=== PATIENT | male | born 1950 | race Caucasian/White ===

== ENCOUNTER → 2017-12-11 13:27 | Outpatient (REF) | payer OTHER, SELFPAY | LOC: LAB 13:27 | PROVIDERS: Visit Provider Otolaryngology | DX: J32.9 Chronic sinusitis, unspecified (principal) | CPT/HCPCS: 87070; 87075; 87077; 87186; 87205 ==

== ENCOUNTER → 2018-01-28 13:40 | Outpatient (REF) | payer OTHER, SELFPAY | LOC: LAB 13:40 | PROVIDERS: Visit Provider Otolaryngology | DX: J32.9 Chronic sinusitis, unspecified (principal) | CPT/HCPCS: 87070; 87075; 87077; 87205 ==

== ENCOUNTER → 2020-02-26 15:20 | Outpatient (CLI) | payer OTHER, SELFPAY ==
[2020-02-27 16:58] LABS: COVID19 Sendout Not Detected (Not Detect)
== END ==
PROVIDERS: PCP Family Medicine; Visit Provider Physician Assistant
DX: Z11.59 Encounter for screening for other viral diseases (principal); Z11.9 Encounter for screening for infectious and parasitic diseases, unspecified
CPT/HCPCS: 87635

== ENCOUNTER 2020-02-29 09:09 | Inpatient (IN) | payer OTHER, SELFPAY ==
[2020-02-23 13:55] VITALS: BMI 33.0
[2020-02-29] VITALS (38 sets, daily range): BP systolic 75–143; BP diastolic 27–94; PULSE 78–101; RESP 6–18; TEMP 35.9–37; O2SAT 87–97; BMI 33.7
--- NOTE | 2020-02-29 | DI.RAD.S_ITS ---
PROCEDURE: XR LUMBAR SPINE 2-3V INDICATIONS: OR TECHNIQUE: 2 views of the lumbar spine were acquired. COMPARISON: [facility], CR, XR LUMBAR SPINE FLEXION EXTENSION, 09/29/2019, 15:28. FINDINGS: 2 submitted fluoroscopic intraoperative images demonstrate posterior/interbody fusion at the L4-L5 and L5-S1 level with posterior fixation hardware and disc spacers in expected position. IMPRESSION: Posterior/interbody fusion L4-L5 and L5-S1. Dictated by: Arnold PEDRAZA Interpreted: Sarahi Guerrero MD on 02/29/2020 at 16:48 Approved by: Sarahi Guerrero M.D. on 02/29/2020 at 18:04
--- NOTE | 2020-02-29 09:38 | PM.PREOP ---
Pre-operative Note COVID-19 COVID-19 status: Negative Result date/Date tested (Pos, Neg/Pending): 02/26/20 Interval Note History & Physical reviewed/Exam performed by Physician: Yes Changes to H&P: No
[2020-02-29] MEDS: LACTATED RINGERS 1,000 ML 42 ML IV ×3 (09:59→11:49)
[2020-02-29] MEDS: CEFAZOLIN 2 GM/100 ML FROZ.PIGGY IV ×3 (10:18→22:05)
--- NOTE | 2020-02-29 10:55 | SUR.OPER ---
Prone on spine table, head in foam head support, padded chest and pelvic supports, gel pad at knees, lower legs supported by pillows; nipples, genitalia and toes free of pressure, arms secured on foam padded arm boards at <90 degrees abduction. Tape over blanket at thigh secured to table.
[2020-02-29] MEDS: THROMBIN (RECOMBINANT) 5,000 UNIT VIAL 5000 UNIT TOP (10:59)
[2020-02-29] MEDS: VANCOMYCIN 1,000 MG VIAL 1000 MG TOP (11:00)
[2020-02-29] MEDS: BUPIVACAINE 0.5% (PF) 4 ML, MORPHINE-PF 4 MG, BUTORPHANOL 1 MG, fentaNYL 100 MCG INJ (11:00)
[2020-02-29] MEDS: SODIUM CHLORIDE 0.9% 1,000 ML, GENTAMICIN 80 MG IRR (11:01)
--- NOTE | 2020-02-29 15:08 | P.OP_ITS ---
Operative Date/Time/Diagnoses Date of procedure: 02/29/20 Time of procedure: 15:08 Pre-op diagnosis: Lumbar stenosis with radiculopathy Lumbar spondylolisthesis Post-op diagnosis: same Procedure & Clinicians Procedure: L2-3, L3-4, L4-5, L5-S1 laminectomies L4-5 L5-S1 TLIF (posterior/posterior interbody fusion) with cages L4, L5, S1 screws Iliac crest bone graft aspirate Use of microscope Placement of epidural catheter Same procedure as scheduled: Yes Indications: [age] year old male with intractable pain from stenosis. They had failed conservative management and requested operative intervention. Risks and benefits of surgery were discussed and appropriate consents were obtained. Surgeon: Austin Garcia Education Instructor: Elvia Jarrell Anesthesia Type: General Operative Notes Findings: None Closure Type: primary Specimen(s): none sent Prosthetic devices, grafts, tissues, transplants, or devices: NuVasive MAS Reline screws Globus Sable cage Applied: catheter Estimated Blood Loss (mL): 50 Blood products transfused: none Procedure in detail: The patient was brought to the operating room and intubated on the table. A time-out was performed. They were then rolled over to the well- padded Adam table in the prone position. Preoperative antibiotics were given. The back was prepped and draped in the standard sterile fashion. Using fluoroscopy, a 6 cm longitudinal incision was made to the right of the midline. We used Bovie to come down to and split the lumbodorsal fascia. Using fluoroscopy and monitoring, we then percutaneously placed Jamshidi needles down the pedicles of L4, L5, and S1 on the right side. These were changed out to guidewires and then we tapped and then placed the NuVasive MAS Reline screw shanks. We then opened up the retractors and used Bovie to clear up the posterolateral gutter as well as medially along the lamina to the spinous processes. A bur was used to decorticate the transverse process of L5 and the sacral ala. We brought in the microscope. Using a combination of bur and Kerrison rongeurs, a laminectomy was performed from the right side. We cleared over past the midline and carefully depressed the dura until we were able to decompress the opposite side. We had to do a facetectomy to open up the neural foramen. We could then used the ball probe to make sure the central canal and foramen were opened. We then began the TLIF prep. We carefully cleaned up the remainder of the foramen until we could easily retract the exiting root as well as clearing medially below the dura and expose the disc space. The disc was prepped with bipolar and then an annulotomy was performed. We performed a diskectomy using a combination of paddles, lisa, pituitaries, and curettes. We distracted the disc using a paddle and locked the retractor in an open position. We then filled the disc space with Osteocel bone graft. We then placed the globus stable cage under fluoroscopy and then filled this in with more bone graft. The distraction on the retractor was released to compress down. This completed the posterior interbody fusion portion of the TLIF at L5-S1. We then moved our retractors up to L4-5. We cleared out the gutter and decorticated the L4 transverse process. We cleared medially. We performed a laminectomy at L4-5. He was extremely tight in the central canal and this level took the longest time compared all the other ones to adequately decompress. In the end we could sweep the ball probe cephalad caudally and out the foramen everything was open. This was separate and distinct from a TLIF approach due to the need to completely decompress the canal and the extended time, which was separate than just a basic approach for TLIF. We then retracted the dura medially. A scalpel used to perform an annulotomy. We performed a complete diskectomy with pituitaries, paddles, Lisa, and curettes. We then placed bone graft and then another globus stable cage and distracted open and then packed and more bone graft. This completed the posterior interbody portion of the TLIF at L4-5. We then moved our retractor up another level and did a laminectomy at L3-4. We then went up to the L2-3 level and also did laminectomy until everything was decompressed. The wound was copiously irrigated. An epidural catheter was then prepped with 4 mL of 0.5% Marcaine, 1 mg Stadol, 4 mg Duramorph, and 100 mcg of fentanyl and placed in the spinal canal by carefully depressing the dura and advancing it 6 cm cephalad under the remaining lamina without resistance. We then placed the screw heads, vinicio, and locked down the set screws. A small stab incision was made over the PSIS. We used a Jamshidi needle to aspirate several mL of bone marrow from the pelvis. This was mixed with the remaining Osteocel and combined with all of the locally harvested bone graft and placed in the posterolateral gutter for the posterior fusion of the TLIF at L4-5 and L5-S1. The muscle fascia was closed. The epidural catheter was then injected without resistance and the catheter was pulled. We then went to the opposite side. Again using fluoroscopy, a 3 cm incision was made and Bovie was used to come down to split the fascia. Using neural monitoring and fluoroscopy, Jamshidi needles were advanced down the pedicles of L4, L5, and S1 on the left side. These were switched over guidewires, tapped, and screws placed. We then placed a vinicio and locked the set screws on this side. The wound was irrigated. The fascia was closed. Vancomycin powder was placed in the wounds. The superficial and skin were closed. A sterile dressing was placed. The patient was then rolled over extubated and brought to recovery room without complications. Complications: none Post-operative Condition: stable Disposition: PACU Plan for aftercare: Inpatient. Up with PT.
--- NOTE | 2020-02-29 16:38 | SUR.PHASEI ---
PT ON CPAP WITH 12 L OXYGEN, RR 6-11, DIMINSIHED BS IN BILATERAL UPPER LOBES, UNABLE TO AUSCULTATE BREATH SOUND IN BILATERAL LOWER LOBES, O2 SATS BETWEEN 86-93%, WILL GET CHEST XRAY. PT AROUSABLE AND FOLLOWS COMMANDS, [place]. DR REED AND DR CROCKER ARE AWARE.
--- NOTE | 2020-02-29 16:46 | DI.RAD.S_ITS ---
PROCEDURE: XR CHEST 1V INDICATIONS: LOW O2 SATS AND LIMITED BREATH SOUNDS AFTER SURGERY TECHNIQUE: One view of the chest was acquired. COMPARISON: [facility], CR, XR CHEST 1 VIEW, 03/19/2019, 8:27. FINDINGS: Surgical changes and devices: None. Lungs and pleura: Patchy opacity in the left lung base which could represent atelectasis, aspiration or pneumonia. No pleural effusions or pneumothorax. Mediastinum: Mediastinal contours appear normal. Heart size is normal. Bones and chest wall: No suspicious bony lesions. Overlying soft tissues appear unremarkable. IMPRESSION: 1. No pneumothorax. 2. Patchy opacity in left lung base compatible atelectasis, aspiration or pneumonia. Dictated by: Tanja Griffin MD, PhD on 02/29/2020 at 17:08 Approved by: Tanja Griffin MD, PhD on 02/29/2020 at 17:10
--- NOTE | 2020-02-29 16:52 | SUR.PHASEI ---
REPORT TO RELIEF ANNETTA FRAGA
--- NOTE | 2020-02-29 16:55 | SUR.PHASEI ---
Assumed care of pt. He is sleeping, oral airway in, CPAP on at 12L. Skin warm and dry; Iain Garcia RN calling report to ICU. Pt recently denied pain and was easily aroused. Urine yellow with white sediment.
--- NOTE | 2020-02-29 18:11 | SUR.PHASEI ---
Dr Garcia here, informed him of BP, CPAP/(he will have RT follow the patient)/CXR, diminished breath sounds in the bases, R>L, urine output and white sediment in urine. He looked at the urine, stated that back dressing may be changed after informing him of the dressing status.
--- NOTE | 2020-02-29 18:14 | SUR.PHASEI ---
Pt sleeping but continues to arouse easily. Skin warm and dry, continues to use CPAP with 14L O2
--- NOTE | 2020-02-29 18:18 | SUR.PHASEI ---
Discussed transfer with Dr. Luis; OK to transfer patient to ICU
--- NOTE | 2020-02-29 18:23 | SUR.PHASEI ---
Report updated with Marisol (ICU)RN. Pt continues to respond readily, denies pain.
--- NOTE | 2020-02-29 18:56 | SUR.PHASEI ---
1830 Transported to room 230 ICU with RN coordinator on 14L simple mask and continuous monitoring. Transport VS 118/80 101, 10, 96%. Pt turned in the room for receiving RN to check his dressing; she will change it with her staff and declined my need to assist. CPAP and clothing bag to the room with him. Pt oriented, appropriate, moves easily with assist. Continues to deny pain/nausea. Family at bedside. Stable. Tolerated transport well. Sat improved on simple mask over CPAP at the time of transfer.
[2020-02-29] MEDS: LACTATED RINGERS 1,000 ML 125 ML IV (19:46)
--- NOTE | 2020-02-29 20:51 | PC.NURSE ---
Addendum entered by Lynette Larry R.N. 02/29/20 22:26: 2226 RT Marianne at bedside to place pt on hospital BiPAP, turned up O2 to 10L bleed in on his home CPAP and saturations continued to drop to 87% when pt sleeping. BiPap setting 10/5 60% rate of 15, Will continue to monitor closely for O2 needs. Addendum entered by Lynette Larry R.N. 02/29/20 21:37: 2055 RT Marianne at bedside, set up pt home CPAP machine with 5L bleed in. Marianne states that if pt needs more than 10L bleed in O2 we will need to switch pt to the hospital BiPAP instead of his home CPAP. 2100 Pt desaturating on 5 L bleed in, turned pt up to 7L bleed in, saturation 92%, will continue to monitor closely for more O2 needs. Original Note: 1838 Pt arrived to room with ONCOLOGY RADIATION PHYSICIAN and Charge Nurse assistance, pt sleeping but rouses to voice and promptly falls back to sleep. Connected pt to monitoring, VSS. Arrived on simple mask with 14L saturation at 92%, contacted RT for BPAP set up. Assessed the dressing to midline on back, needs to be changed, replaced xeroform, gauze and tegaderm. Left sided incision continues to drain serosanguinous drainage, covered with new dressing, now CDI. is at bedside, she answered most admission assessment questions, pt able to answer some questions but quickly falls back to sleep. Oriented pt to room and call light system, pt denies pain at this time, bed low and locked, call light within reach, will continue to monitor.
[2020-03-01] VITALS (20 sets, daily range): BP systolic 94–126; BP diastolic 50–73; PULSE 77–110; RESP 11–27; TEMP 35.8–37.3; O2SAT 90–98
--- NOTE | 2020-03-01 00:28 | PC.NURSE ---
Pt alert and oriented x4. Denies any pain at this time. O2 sats running at 96% while on Bipap. VSS. Pt back dressing saturated with sanguineous drainage. Dressing changed. Pt log rolling from side to side without much assist. Gomes cather draining cloudy yellow urine. CMS intact. Pt denies any complaints at this time
[2020-03-01] MEDS: HYDROMORPHONE 0.5 MG INJ IV (02:41)
[2020-03-01] MEDS: LACTATED RINGERS 1,000 ML 125 ML IV (04:23)
[2020-03-01 05:31] LABS: Hemoglobin 11.7 g/dL (13.5-17.5)
[2020-03-01] MEDS: OXYCODONE/ACETAMINOPHEN 5/325 TABLET 2 TAB PO ×4 (05:54→19:41)
[2020-03-01] MEDS: CEFAZOLIN 2 GM/100 ML FROZ.PIGGY IV (05:56)
--- NOTE | 2020-03-01 06:11 | DI.RAD.S_ITS ---
PROCEDURE: XR CHEST 1V INDICATIONS: decreased O2 saturation TECHNIQUE: One view of the chest was acquired. COMPARISON: [facility], CR, XR CHEST 1V, 02/29/2020, 16:37. FINDINGS: Surgical changes and devices: None. Lungs and pleura: Patchy opacity left lung base are stable. No pleural effusions or pneumothorax. Mediastinum: Mediastinal contours appear normal. Heart size is normal. Bones and chest wall: No suspicious bony lesions. Overlying soft tissues appear unremarkable. IMPRESSION: Stable examination compared February 29, 2020. Patchy opacity left lung base could represent atelectasis, aspiration or pneumonia. Dictated by: Tanja Griffin MD, PhD on 03/01/2020 at 9:11 Approved by: Tanja Griffin MD, PhD on 03/01/2020 at 9:13
--- NOTE | 2020-03-01 08:20 | P.PN_ITS ---
Subjective Subjective Date Patient Seen: 03/01/20 Time Patient Seen: 08:20 Interval history: He is doing well. Gradually started waking up overnight and has weaned off his CPAP and BiPAP to just 3 L O2. Pain is about a 6 and controlled with Percocet. Mostly stiff in the back. Legs feel good Exam Vital Signs (past 8 hours): - 03/01/20 01:00 03/01/20 01:13 03/01/20 02:00 Temperature Pulse Rate 96 H 96 H 95 H Respiratory Rate 13 12 11 L Blood Pressure 125/64 125/64 125/67 Pulse Oximetry 95 97 97 03/01/20 03:00 03/01/20 04:00 03/01/20 04:27 Temperature 98.0 F Pulse Rate 96 H 95 H Respiratory Rate 11 L 14 Blood Pressure 112/63 116/63 Pulse Oximetry 96 98 03/01/20 05:00 03/01/20 06:00 Temperature Pulse Rate 94 H 101 H Respiratory Rate 14 Blood Pressure 119/65 120/63 Pulse Oximetry 92 94 Fraction of Inspired Oxygen 60 Oxygen Delivery Method BiPAP Oxygen Flow Rate 3 Const Orientation: alert and oriented x3 Back/Spine/Pelvis Other: Moderate drainage. 5/5 motor both lower extremities Objective Labs Result Diagrams: 03/01/20 04:33 Labs: Laboratory Results - last 24 hr 02/29/20 03/01/20 18:56 04:33 Hgb 11.7 L Hct 35.0 L Nasal Screen MRSA (PCR) Negative for mrsa Assessment & Plan Post-op Postoperative Procedures: Procedures Operation Date: 02/29/20 10:15 Actual Procedures Side Surgeon p L2-S1 laminectomies,L4-S1 instrumented fusion w/bone graft Austin Garcia MD he is doing much better today. Mobilize with physical therapy. Anticipate 2 m ore days in the hospital.
[2020-03-01] MEDS: CELECOXIB 200 MG CAPSULE PO ×2 (09:59→20:22)
[2020-03-01] MEDS: GABAPENTIN 600 MG TABLET PO ×3 (09:59→20:23)
[2020-03-01] MEDS: CHOLECALCIFEROL (VITAMIN D3) 5,000 UNIT TABLET 5000 UNIT PO (10:06)
[2020-03-01] MEDS: LORATADINE 10 MG TABLET PO (10:07)
[2020-03-01] MEDS: DOCUSATE 100 MG CAPSULE PO ×2 (10:07→20:23)
[2020-03-01] MEDS: CYANOCOBALAMIN (VITAMIN B-12) 500 MCG TABLET 2000 MCG PO (10:07)
[2020-03-01] MEDS: DULOXETINE 30 MG CAPSULE 90 MG PO (10:07)
[2020-03-01] MEDS: MULTIVITAMIN 1 TABLET 1 TAB PO (10:08)
[2020-03-01] MEDS: FLUTICASONE 120 SPRAY/16 GM SPRAY.SUSP NASAL (10:08)
[2020-03-01] MEDS: PANTOPRAZOLE 40 MG TABLET PO (10:08)
[2020-03-01] MEDS: lisinopriL 20 MG TABLET PO (10:08)
[2020-03-01] MEDS: AMLODIPINE 5 MG TABLET 10 MG PO (10:09)
[2020-03-01] MEDS: ASCORBIC ACID 500 MG TABLET 1000 MG PO ×2 (10:10→20:22)
--- NOTE | 2020-03-01 11:32 | PT.IIE ---
Current Diagnoses Other forms of scoliosis, lumbar region (02/29/20) Spondylolisthesis, lumbar region (02/29/20) Spinal stenosis, lumbar region with neurogenic claudication (02/29/20) Surgery Performed Operation Date: 02/29/20 10:15 Actual Procedures p L2-S1 laminectomies,L4-S1 instrumented fusion w/bone graft - Austin Garcia MD Surgical History (Last Updated 02/23/20 @ 14:30 by Ella Whitehead RN) H/O umbilical hernia repair (Acute 2019) History of bilateral carpal tunnel release (Acute) History of colonoscopy (Acute) History of esophageal hernia repair (Acute 2018) History of lumbar surgery (Acute 2008) Hx of appendectomy (Acute) Hx of sinus surgery (Acute 2017) Hx of tonsillectomy (Acute) Medical History (Last Updated 02/23/20 @ 14:30 by Ella Whitehead RN) Arthritis (Acute) Depression (Acute) GERD (gastroesophageal reflux disease) (Acute) Hemorrhoids (Acute) History of exposure to tuberculosis (Acute) HLD (hyperlipidemia) (Acute) HTN (hypertension) (Acute) TJ (obstructive sleep apnea) (Acute) Peripheral neuropathy (Acute) RLS (restless legs syndrome) (Acute) Skin cancer (Acute) Physical Therapy Inpatient Evaluation/Re-Eval M1 PT/OT-IP Prior Functional Status Start: 03/01/20 08:42 Freq: NEEDED Status: Active Protocol: Document 03/01/20 11:13 (Rec: 03/01/20 11:32 [email or web address]) Medical Review Prior Functional Status Medical History Reviewed Yes Diet/Fluid Consistency Regular Communication no deficits noted. Mobility and Gait independent for all mobility at home and community. Walking over 1/2 mile or driving over 30 mins tend to aggravate his back pain. Bending over tends to relieve his symptoms. Activities of Daily Living and IADL's independent for all ADLs and IADLs witohut AD. He is also able to drive. Social History Household Members spouse Living Arrangements House Number of Floors (Floors) One Floor Number of Stairs To Enter/Railing? 3 MEENA without rails. 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 He stated his will be able to assist as needed, and so does his sister who lives 15 mins away. M2 PT-IP Current Condition Start: 03/01/20 08:42 Freq: NEEDED Status: Active Protocol: Document 03/01/20 11:13 (Rec: 03/01/20 11:32 [email or web address]) Physical Therapy Current Condition Current Condition Evaluation Date 03/01/20 Treatment Diagnosis L2-S1 laminectomies,L4-S1 instrumented fusion Onset Date 02/29/20 Precautions Lumbar Precautions Log Roll,No Twisting,Limit Bending,Lifting Restriction of 10 lbs,Gait Belt above Incisional Area Weight Bearing Status Weight Bearing Status Weight Bear as Tolerated M3 PT-IP Subjective Start: 03/01/20 08:42 Freq: NEEDED Status: Active Protocol: Document 03/01/20 11:13 (Rec: 03/01/20 11:32 [email or web address]) Subjective Physical Therapy Visit Type Type Initial Evaluation Visit Start Time 10:00 Visit Stop Time 10:39 Total Visit Minutes 39 Notes Per EMR, pt is gradually started waking up overnight and has weaned off his CPAP and BiPAP to just 3 L O2. Pain is about a 6 and controlled with Percocet. Number of RECORDS MANAGEMENT ASSOCIATE Visits 0 Physical Therapy Visit Comments Patient Comments Im feeling much better today. Patient Goals to return home with . Therapy Pain Assessment Pain When Pain Assessed During Mobility Pain Present Pain Present Pain Reported Location both legs Description Tightness Pain Management Techniques Timing of Activity with Medications back Description Aching,Tightness Pain Management Techniques Timing of Activity with Medications M4 PT-IP Mobility and Gait Start: 03/01/20 08:42 Freq: NEEDED Status: Active Protocol: Document 03/01/20 11:13 (Rec: 03/01/20 11:32 [email or web address]) PT-Bed Mobility Assessment Rolling Type of Rolling Log Rolling,Roll to Right Level of Assist Standby Assistance Supine to Sit Supine to Sit Standby Assistance,Bedrails Scooting Scooting to Edge of Bed Standby Assistance PT-Transfer Assessment Sit to and From Stand Sit to and from Stand Contact Guard Assistance,Use of Upper Extremities Equipment Transfer Assistive Device Gait Belt,Front Wheeled Walker Orthotic/Prosthetic Devices or Brace: No Transfers Transfer Destination Bed,Chair Transfer Technique Stand Step Pivot Transfer Ability Level of Assist Contact Guard Assistance,Use of Upper Extremities Comments Mobility Comments Pt was in bed with elevated HOB upon PT arrival. Stated pain is controlled and appeared to AxO x 4. BP at 128 /80, SpO2 99% with NC. RN Shana came in to deliver medication and approved to detach his NC and tele. Pt's SpO2 was able to maintain >92% without NC after. Reviewed postop precautions with pt. He then completed log roll by using R bed rail to pull followed by SL push off to sit up with SBA. Pt completed confidently without much discomfort. He then able to stand up with CGA and FWW. SpO2@ ~88-92%. Pt then proceed to amb in the room with therapist and he was well aware not to rotate his trunk during turns. Pt was able to stand without support while donning face mask after. He then amb 1 lap of [facility] with SBA. He appeared to be steady with proper gait mechanics but with a FHP and thoracic kyphosis. Pt then walked back to his room and safely transferred himself to chair with 1UE support on FWW and the other one on chair armrest. BP at 152/84 after SpO2 at 96%. Pt did show some SOB but denied increased in discomfort except tightness at calves. Call light placed within reach and provided the list of [employer] companies. Gait Assessment Gait Gait Assistance Required: Standby Assistance,Contact Guard Assist Distance (Feet) 140 Able to Maintain Weight Bearing Status Yes During Gait Assistive Devices Assistive Device Gait Belt,Front Wheeled Walker Orthotic/Prosthetic Devices or Brace: No Gait Deviations General Gait Pattern Decreased Stride Length, Decreased Feet Clearance, Flexed Trunk,Step-to Gait Factors Limiting Gait Function Factors Limiting Gait Function Decreased Activity Tolerance, Decreased Strength,Limited Range of Motion,Pain,Poor Balance,Respiratory Distress Comments Gait Comments see mobility comments. Stair Climbing Assessment Comments Stair Climbing Comments did not attempt d/t fatigue. PT-Balance Assessment Sitting Balance and Reactions Static Sitting Balance Ability Normal Dynamic Sitting Balance Ability Normal Standing Balance and Reactions Static Standing Balance Ability Good Dynamic Standing Balance Ability Good Device Used FWW M5 PT-IP Objective Assessments Start: 03/01/20 08:42 Freq: NEEDED Status: Active Protocol: Document 03/01/20 11:13 HH (Rec: 03/01/20 11:32 [email or web address]) Orientation Orientation/Cognition Level of Alertness Alert Orientation Name,Age,Birthday,Month,Date, Year,Day of Week,Place, Situation Language Function Ability No Deficits Noted Safety Awareness Understands Safety Issues Memory Description No Deficits Noted Gross Range of Motion Upper Extremity ROM Assessment Within Functional Limits Lower Extremity ROM Assessment Within Functional Limits Strength Upper Extremity Strength Assessment Within Functional Limits Lower Extremity Strength Assessment Bilaterally Impaired Hip 4-/5 Knee 4/5 Ankle 4/5 Coordination Assessment Gross Coordination Gross Coordination WNL Sensation Assessment Sensation Gross Sensation WNL Muscle Tone Muscle Tone WNL Yes M6 PT-IP Treatment Start: 03/01/20 08:42 Freq: NEEDED Status: Active Protocol: Document 03/01/20 11:13 (Rec: 03/01/20 11:32 [email or web address]) Physical Therapy Treatment Exercises Exercises Ankle Pumps,Gluteal Sets,Quad Sets,Heel Slides Education Education Provided Precautions,Weight Bearing Status,Post-Op Packet,Safety M7 PT-IP Assessment and Plan Start: 03/01/20 08:42 Freq: NEEDED Status: Active Protocol: Document 03/01/20 11:13 (Rec: 03/01/20 11:32 [email or web address]) PT Summary Assessment and Plan Potential Rehabilitation Potential Excellent Status of Condition at Evaluation Stable Summary Impairments Pain,ROM,Strength,Balance,Bed Mobility,Transfers,Gait, Activity Tolerance Assessment Summary This is a low complexity evaluation for this 69yo male s/p POD 1 L2-S1 laminectomies, L4-S1 instrumented fusion. Pt is totally independent without assistance/ AD prior to sx. Upon assessment, pt did very well who has excellent self awareness and understanding with post op precautions. He was able to complete log roll, gait training with FWW with SBA-CGA safely. No increased discomfort noted and both BP and SpO2 are well managed as well. Expect pt will be d/c home with assistance as needed once he is medically stable and completes rehab goals. Goals Bed Mobility Goal Standby Assistance Transfer Goal Standby Assistance,Front Wheeled Walker Gait Goal Standby Assistance,Front Wheel Walker Gait Distance 200 Other Goals 3 MEENA with rails SBA/CGA Days to Meet Goals 3 Frequency of Treatment Frequency Of Treatment Twice a Day Treatment Plan Physical Therapy Treatment Plan Bed Mobility Training,Transfer Training,Gait Training, Therapeutic Exercise,Balance Retraining,Post Op Education, Discharge Planning,Hot or Cold Pack,Neuromuscular Re-ed Other Recommendations and Next Treatment reivew post op precautions Focus check DME availability at home CG training might needed for 3 Meena climbing without rails. Recommendations To Nursing Amount of Assist Needed 1 Person Assist Discharge Recommendations PT Discharge Recommendations Home with Assistance Equipment Needed for Home Before raise toilet seat Discharge shower chair with backrest FWW if pt's family cannot acquire on their own Transportation Needs at Discharge Private Vehicle
--- NOTE | 2020-03-01 13:08 | CM.DANOTE ---
Patient is a 69 year old male who was admitted on 02/29/20 for Lumbar Surgery. Pt has [facility] for insurance and his PCP is Dr. Charlie Mobley. EMR was reviewed. Per Ortho MD, pt making progress as he was requiring bipap post surgery and weaned to 3L oxygen to room air. Pt having some pain and to work with PT/OT today. 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 OT pending. 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 Pt denies any hx of HH or SNF and DPOA is spouse Reanna. Pt preference is home with spouse assist and sister lives nearby and available for assist as well. Pt has list of DME companies and plans to call a few to get some DME like walker, shower bench, raised toilet seat etc. and will continue working with PT/OT for caregiver training and both currently feel comfortable with plan of home at d/c. Plan: SW to follow for further PT/OT to confirm plan of home with assist tomorrow or Friday pending further therapy recommendations and CG training. SOC[place]RO [place] Discharge Planning/Care Management CM Discharge Assessment Start: 03/01/20 12:59 Freq: Status: Active Protocol: Document 03/01/20 13:00 BF (Rec: 03/01/20 13:08 [id number]) Discharge Planning Assessment Assigned Fire Prevention Officer BRAXTON Prajapati DPOA/Assigned Designee Name spouse Reanna Contact Information [phone] Advance Directives? No History Provided By Patient,Significant Other, Medical Record Has Patient been admitted in last 30 No days? Prior Living Arrangements House Household Members spouse Type of transporation used prior to Drives own vehicle admit Comment Independent and active at baseline Independent with ADL's Yes Is patient alert and oriented? Yes Caregiver for Another No Community Services used prior to Physical Therapy admission: Comment Looking to get a walker, raised toilet, bath bench Patient/Family Preference OP PT Therapy Barriers to Discharge No Discharge Plan Home Community Services Physical Therapy,Occupational Therapy Transportation Arrangement Spouse bedside and can provide transport at d/c. Referrals Initiated None needed Whiteboard Updated in Patient Room with Yes name and ext. # of Fire Prevention Officer Review Status In Process Please Provide Date Initial DC 03/01/20 Assessment Was Performed Next Review Type Continued Stay Review Pre-Anesthesia Assessment Start: 02/23/20 13:55 Freq: Status: Complete Protocol: Document 02/23/20 13:55 CAB (Rec: 02/23/20 15:14 CAB [id number]) Pre-Anesthesia Assessment Preferred Name Javier or Alejandro Patient Information Reviewed Via Phone Assessment Assessment Completed With Patient Comment Labs/EKG done per pt, not available-COVID screen @ 02/26/20 Primary Care Provider Charlie Mobley Seen Specialist in Last 12 Months Yes Specialist Seen Growth Media Mixer Mushroom,General surgeon, Orthopedist Primary Language Chinese Shipping Processor Required No Height 175.26 cm Weight 101.605 kg Body Mass Index (BMI) 33.0 Hearing Ability Normal Visual Assist Contacts,Glasses Dentition Type Teeth, Natural Present,Teeth, Missing Barriers to Learning None Other Aids No Hx Anesthesia Reactions No Hx Family Anesthesia Reaction No Hx Malignant Hyperthermia No Hx Blood Transfusions No Anesthesia Review Requested No alcohol intake current alcohol intake frequency a few times a week Smoking Status Former smoker Tobacco type cigarettes how long ago did patient quit smoking Quit 07/21/1998 Substance Use Type marijuana Comment Pt advised not to smoke marijuana 24 hours prior to surgery Pain Present Pain Reported Musculoskeletal Symptoms Abnormal Gait,Back Pain, Difficulty Walking,Radiating Pain into Limb History of Falling (Recent or History of No ) Patient is completely paralyzed or No completely immobile Mental Status Oriented to own ability Is patient on oxygen? No Does patient have WELLER/SOB No Hx Sleep Apnea Yes: Does not tolerate CPAP CPAP/BIPAP use prescribed not used Currently Taking a Beta Shaun No Can You Climb a Flight of Stairs Without Yes SOB Hx Chest Pain No Hx SOB No Hx Syncope or Dizziness No Anti-Coagulant Therapy No Has a Growth Media Mixer Mushroom Yes Cardiac Testing No Hx Pacemaker/ICD No Pacemaker Rep Required? 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 Marital Status Lives With spouse Prior Living Arrangements House Number of Floors (Floors) One Floor Support System Spouse Does the Patient Have Assistance After Yes Surgery Patient Discharge Plan Description Return Home Comment Pt advised 2-3 night length of stay per surgeon Feels Safe in Current Environment Yes Been Physically Hurt or Threatened By a No Person in Current Environment Do you have thoughts of harming yourself None or others? Are you currently considering suicide? No Do you have a plan to hurt yourself or No Plan others? Do You Have Any Spiritual Beliefs That No May Affect Your HC Choices? Do You Have Any Cultural Practices That No May Affect Your HC Choices? Who Can We Speak to About Patient's Care Family, friends Identifying Code for Release of Patient Declines to issue Information Health Care Proxy/Next of Kin Reanna () Health Care Proxy Emergency Contact Name Reanna () Emergency Contact Advance Directives? No Power of Facing Grinder No PAC Instructions Durable medical equipment, Medications to take/avoid, Nasal antibiotic,No ETOH/ petroleum product on skin DOS, NPO,Post-op transportation,Pre -surgical wash,Sturdy shoes/ comfortable clothes,Do not bring valuables and remove jewelry
--- NOTE | 2020-03-01 15:20 | PC.NURSE ---
Day Shift Note Alert and oriented x3. Swallowed pills without issue this AM. On 3L NC on AM assessment and titrated to RA, SpO2 93%. Requiring 2L NC with extended activity as he desaturates to the mid-80s. Pt denies any shortness of breath. Instructed on use of IS and reaching [phone]. Pt using CPAP with 4L bleed in when sleeping. Dressing saturated to lower back this morning, dressing changed per Dr. Garcia, oozing noted to right incision and gauze placed. Dressing D/I with sanguinous shadow drainage this afternoon. Gomes discontinued at 1430, pt tolerated well. Call light within reach, using appropriately to make needs known.
--- NOTE | 2020-03-01 16:40 | PT.IPTN ---
Current Diagnoses Other forms of scoliosis, lumbar region (02/29/20) Spondylolisthesis, lumbar region (02/29/20) Spinal stenosis, lumbar region with neurogenic claudication (02/29/20) Surgery Performed Operation Date: 02/29/20 10:15 Actual Procedures p L2-S1 laminectomies,L4-S1 instrumented fusion w/bone graft - Austin Garcia MD Physical Therapy Treatment Note M2 PT-IP Current Condition Start: 03/01/20 08:42 Freq: NEEDED Status: Active Protocol: Document 03/01/20 11:13 HH (Rec: 03/01/20 11:32 [email or web address]) Physical Therapy Current Condition Current Condition Evaluation Date 03/01/20 Treatment Diagnosis L2-S1 laminectomies,L4-S1 instrumented fusion Onset Date 02/29/20 Precautions Lumbar Precautions Log Roll,No Twisting,Limit Bending,Lifting Restriction of 10 lbs,Gait Belt above Incisional Area Weight Bearing Status Weight Bearing Status Weight Bear as Tolerated M3 PT-IP Subjective Start: 03/01/20 08:42 Freq: NEEDED Status: Active Protocol: Document 03/01/20 15:15 HH (Rec: 03/01/20 16:40 [email or web address]) Subjective Physical Therapy Visit Type Type Treatment Note Visit Start Time 15:15 Visit Stop Time 15:46 Total Visit Minutes 31 Notes pimentel catheter is out. attended session Number of HIGHWAY CONSTRUCTION INSPECTOR Visits 0 Physical Therapy Visit Comments Patient Comments Im feeling stiff again and i want to get up Therapy Pain Assessment Pain When Pain Assessed During Mobility Pain Present Pain Present Pain Reported Location both legs Description Tightness Pain Management Techniques Timing of Activity with Medications M4 PT-IP Mobility and Gait Start: 03/01/20 08:42 Freq: NEEDED Status: Active Protocol: Document 03/01/20 15:15 (Rec: 03/01/20 16:40 [email or web address]) PT-Bed Mobility Assessment Rolling Type of Rolling Log Rolling,Roll to Right Level of Assist Standby Assistance Supine to Sit Supine to Sit Standby Assistance,Bedrails Scooting Scooting to Edge of Bed Standby Assistance PT-Transfer Assessment Sit to and From Stand Sit to and from Stand Standby Assistance,Use of Upper Extremities Equipment Transfer Assistive Device Gait Belt,Front Wheeled Walker Orthotic/Prosthetic Devices or Brace: No Transfers Transfer Destination Bed,Chair Transfer Technique Stand Step Pivot Transfer Ability Level of Assist Standby Assistance,Use of Upper Extremities Comments Mobility Comments PT was in bed upon PT arrival. SpO2 at 85-88%. RN Lynette came in and requested to apply NC for PT session. Give 2L/min with portable O2. Pt then completetd log roll and sat up from SL position with use of R bedrail. He then stood up by pushing off from FWW safely. He then amb from his room to [facility] with SBA/ CGA. Pt appeared to be very steady and able to minimally use of FWW. Pt completed stair training and was w/c back to his room. He was able to stand up with FWW SBA and stand pivot transfer to his R side and safely descend by using chair armrest. SpO2 at 95% with 2L. denies discomfort and call ligth placed within reach. Gait Assessment Gait Gait Assistance Required: Standby Assistance,Contact Guard Assist Distance (Feet) 280 Able to Maintain Weight Bearing Status Yes During Gait Assistive Devices Assistive Device Gait Belt,Front Wheeled Walker Orthotic/Prosthetic Devices or Brace: No Gait Deviations General Gait Pattern Decreased Stride Length, Decreased Feet Clearance, Flexed Trunk,Step-to Gait Factors Limiting Gait Function Factors Limiting Gait Function Decreased Activity Tolerance, Decreased Strength,Limited Range of Motion,Pain,Poor Balance,Respiratory Distress Comments Gait Comments see mobility comments. Stair Climbing Assessment Evaluation Level of Assist On Stairs Contact Guard Assistance,1 Person Assistance Devices Stair Climbing Assistive Devices Right Railing Technique/Endurance Stair Climbing Direction Ascend and Descend Stair Climbing Technique Step Over Step Number of Steps Climbed 3 Stair Climbing Set # Repetitions (reps) 2 Comments Stair Climbing Comments pt was very steady while stair climbing without increased discomfort. PT-Balance Assessment Sitting Balance and Reactions Static Sitting Balance Ability Normal Dynamic Sitting Balance Ability Normal Standing Balance and Reactions Static Standing Balance Ability Good Dynamic Standing Balance Ability Good Device Used FWW M5 PT-IP Objective Assessments Start: 03/01/20 08:42 Freq: NEEDED Status: Active Protocol: Document 03/01/20 11:13 (Rec: 03/01/20 11:32 [email or web address]) Orientation Orientation/Cognition Level of Alertness Alert Orientation Name,Age,Birthday,Month,Date, Year,Day of Week,Place, Situation Language Function Ability No Deficits Noted Safety Awareness Understands Safety Issues Memory Description No Deficits Noted Gross Range of Motion Upper Extremity ROM Assessment Within Functional Limits Lower Extremity ROM Assessment Within Functional Limits Strength Upper Extremity Strength Assessment Within Functional Limits Lower Extremity Strength Assessment Bilaterally Impaired Hip 4-/5 Knee 4/5 Ankle 4/5 Coordination Assessment Gross Coordination Gross Coordination WNL Sensation Assessment Sensation Gross Sensation WNL Muscle Tone Muscle Tone WNL Yes M6 PT-IP Treatment Start: 03/01/20 08:42 Freq: NEEDED Status: Active Protocol: Document 03/01/20 11:13 HH (Rec: 03/01/20 11:32 [email or web address]) Physical Therapy Treatment Exercises Exercises Ankle Pumps,Gluteal Sets,Quad Sets,Heel Slides Education Education Provided Precautions,Weight Bearing Status,Post-Op Packet,Safety M7 PT-IP Assessment and Plan Start: 03/01/20 08:42 Freq: NEEDED Status: Active Protocol: Document 03/01/20 15:15 HH (Rec: 03/01/20 16:40 HH [id number]) PT Summary Assessment and Plan Potential Rehabilitation Potential Excellent Status of Condition at Evaluation Stable Summary Impairments Pain,ROM,Strength,Balance,Bed Mobility,Transfers,Gait, Activity Tolerance Assessment Summary Pt cont to show improved mobility with SBA/ CGA with FWW. Pt is very steady and no LOB. However, his SpO2 tends to desat to mid 80s with OOB activites and needed 2L/min to keep him >94%. Pt will cont benefit from skilled therapy to improve his mobility and activity tolerance. Pt and his also stated they are going to install a R handrail for front entrance steps. Expect pt to be d/c home with assistance tomorrow. Goals Bed Mobility Goal Standby Assistance Transfer Goal Standby Assistance,Front Wheeled Walker Gait Goal Standby Assistance,Front Wheel Walker Gait Distance 200 Other Goals 3 REGINALDO with R rail SBA/CGA Days to Meet Goals 3 Frequency of Treatment Frequency Of Treatment Twice a Day Treatment Plan Physical Therapy Treatment Plan Bed Mobility Training,Transfer Training,Gait Training, Therapeutic Exercise,Balance Retraining,Post Op Education, Discharge Planning,Hot or Cold Pack,Neuromuscular Re-ed Other Recommendations and Next Treatment reivew post op precautions Focus check DME availability at home CG training might needed for 3 Reginaldo climbing without rails. Recommendations To Nursing Amount of Assist Needed 1 Person Assist Discharge Recommendations PT Discharge Recommendations Home with Assistance Equipment Needed for Home Before raise toilet seat Discharge shower chair with backrest FWW if pt's family cannot acquire on their own Transportation Needs at Discharge Private Vehicle
--- NOTE | 2020-03-01 17:05 | OT.IP.EVAL ---
Current Diagnoses Other forms of scoliosis, lumbar region (02/29/20) Spondylolisthesis, lumbar region (02/29/20) Spinal stenosis, lumbar region with neurogenic claudication (02/29/20) Surgery Performed Operation Date: 02/29/20 10:15 Actual Procedures p L2-S1 laminectomies,L4-S1 instrumented fusion w/bone graft - Austin Garcia MD Past Medical History (Last Updated 02/23/20 @ 14:30 by Ella Whitehead RN) Arthritis (Acute) Depression (Acute) GERD (gastroesophageal reflux disease) (Acute) Hemorrhoids (Acute) History of exposure to tuberculosis (Acute) HLD (hyperlipidemia) (Acute) HTN (hypertension) (Acute) TJ (obstructive sleep apnea) (Acute) Peripheral neuropathy (Acute) RLS (restless legs syndrome) (Acute) Skin cancer (Acute) Surgical History (Last Updated 02/23/20 @ 14:30 by Ella Whitehead RN) H/O umbilical hernia repair (Acute 2018) History of bilateral carpal tunnel release (Acute) History of colonoscopy (Acute) History of esophageal hernia repair (Acute 2018) History of lumbar surgery (Acute 2008) Hx of appendectomy (Acute) Hx of sinus surgery (Acute 2017) Hx of tonsillectomy (Acute) Occupational Therapy Inpatient Evaluation/Re-Eval M1 PT/OT-IP Prior Functional Status Start: 03/01/20 17:28 Freq: NEEDED Status: Active Protocol: Document 03/01/20 16:23 [facility] (Rec: 03/01/20 18:11 [facility] [id number]) Medical Review Prior Functional Status Medical History Reviewed Yes Diet/Fluid Consistency Regular Communication no deficits noted. Mobility and Gait independent for all mobility at home and community. Walking over 1/2 mile or driving over 30 mins tend to aggravate his back pain. Bending over tends to relieve his symptoms. Activities of Daily Living and IADL's independent for all ADLs and IADLs without AD. He is also able to drive. Social History Household Members spouse Living Arrangements House Number of Floors (Floors) One Floor Number of Stairs To Enter/Railing? 3 REGINALDO without rails. 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 He stated his will be able to assist as needed, and so does his sister who lives 15 mins away. M2 OT-IP Current Condition Start: 03/01/20 17:28 Freq: Status: Active Protocol: Document 03/01/20 16:23 [facility] (Rec: 03/01/20 18:11 [facility] [id number]) Occupational Therapy Current Condition Current Condition Evaluation Date 03/01/20 Treatment Diagnosis Lumbar stenosis with radiculopathy, s/p L4-S1 instru fusion Diagnosis Onset Date 02/29/20 M3 OT- IP Subjective and Pain Start: 03/01/20 17:28 Freq: Status: Active Protocol: Document 03/01/20 16:23 [facility] (Rec: 03/01/20 18:11 [facility] [id number]) OT- Subjective Occupational Therapy Visit Type Type Initial Evaluation Visit Start Time 16:23 Visit Stop Time 17:05 Total Visit Minutes 42 Occupational Therapy Visit Comments Patient Comments Pt agreed to get up for OT eval and pt's present for OT session. Patient/Caregiver Goals To go home and eventually be able to run and play with his grand kids again. OT Pain Assessment Pain When Pain Assessed During Mobility Pain Present Pain Present Pain Reported Location both legs Intensity 4 Scale Used Numeric (0 - 10) M4 OT- IP ADL's Start: 03/01/20 17:28 Freq: Status: Active Protocol: Document 03/01/20 16:23 [facility] (Rec: 03/01/20 18:11 [facility] [id number]) OT [id number] Comments OT Self-Feeding Comments Not at meal time. OT ADL-Grooming Comments OT Grooming Comments Pt states did earlier. Educated to spit into a cup to best follow back precaution and to sit while shaving at this time. OT ADL-Dressing General Eval Lower Body Dressing Ability Maximum Assistance Areas Needing Assistance Socks Comments OT Dressing Comments Educated pt on LB dressing equipment of university extension specialist, sock aid , and long handled shoe horn. Pt already has a long handled sponge. Pt has tie shoes and his to assist him at home . OT ADL-Toileting Comments OT Toileting Comments Able to practice technique of wiping after a bowel movement and determined best for pt to stand with FWW and reach behind to wipe to best follow back precautions. OT ADL-Bathing Comments OT Bathing Comments Not at this time. To do tomorrow. In was determined best to have a shower chair for his walk in shower at home . M5 OT- IP IADL's Start: 03/01/20 17:28 Freq: Status: Active Protocol: Document 03/01/20 16:23 [facility] (Rec: 03/01/20 18:11 [facility] [id number]) OT-Instrumental Activities of Daily Living Home Safety Awareness Awareness of Need for Assistance at Home Good Awareness Ability to Problem Solve Emergency Able to Problem Solve Situations Medication Management Medication Management No Deficits Identified Money Management Money Management No Deficits Identified Md Psychiatry Md Psychiatry Caregiver Provides Assist M6 OT- IP Functional Cognition Start: 03/01/20 17:28 Freq: Status: Active Protocol: Document 03/01/20 16:23 [facility] (Rec: 03/01/20 18:11 [facility] [id number]) Cognitive Factors Limiting Selfcare Function Cognitive Ability Level of Alertness Alert Patient Orientation Name,Place,Situation Attention Span Ability Capable of Focused Attention, Capable of Sustained Attention Ability to Follow Commands Able to Follow Multi-Step Commands Memory Description No Deficits Noted Safety Awareness No Deficits Noted Problem Solving Ability No deficits Noted Cognitive Comments Cognitive Assessment Comments Pt able to recall all back precautions and no cognitive deficits noted at this time. OT- Vision and Hearing OT- Hearing Assessment OT- Hearing Assessment WFL M7 OT- IP Mobility and Balance Start: 03/01/20 17:28 Freq: Status: Active Protocol: Document 03/01/20 16:23 [facility] (Rec: 03/01/20 18:11 [facility] [id number]) OT- Bed Mobility Assessment Rolling Type of Rolling Roll to Right Level of Assistance Standby Assistance Supine to Sit Supine to Sit Assist Standby Assistance Scooting Scooting to Edge of Bed Standby Assistance OT-Transfer Assessment Sit to and From Stand Sit to and from Stand Standby Assistance Transfers Transfer Ability Standby Assistance Technique Transfer Destination Bed,Chair Transfer Technique Stand Step Pivot Devices Transfer Assistive Devices Gait Belt,Front Wheeled Walker Comments Mobility Comments Pt SBA for log rolling even without the grab bar. Pt SBA with FWW, pt tends to want to grab the FWW to stand. Pt was able to demonstrate standing by just pushing up from the bed. Initially pt on 2L of O2 and while talking drops to 89% by the end of the session, pt '2 o2 level 95%. OT- Gait Assessment Comments Gait Ability Comments SBA with FWW. OT- Balance Assessment Sitting Balance and Reactions Static Sitting Balance Ability Normal Dynamic Sitting Balance Ability Good Standing Balance and Reactions Static Standing Balance Ability Fair M8 OT- IP Objective Assessments Start: 03/01/20 17:28 Freq: Status: Active Protocol: Document 03/01/20 16:23 [facility] (Rec: 03/01/20 18:11 [facility] [id number]) OT-Muscle Tone Assessment Muscle Tone WNL Yes M9 OT- IP Assessment and Plan Start: 03/01/20 17:28 Freq: Status: Active Protocol: Document 03/01/20 16:23 [facility] (Rec: 03/01/20 18:11 [facility] [id number]) OT Summary Assessment and Plan Potential Rehabilitation Potential Excellent Analytic Complexity at Evaluation Low Summary OT Impairments Pain,Functional Mobility, Grooming,Dressing,Toileting, Bathing,Toilet Transfers, Shower Transfers Progress Towards Goals Progressing Toward Goals Assessment Summary Pt low complexity and main barriers are steps , pain, on oxygen at this time.and now needing one person assist for ADL needs. Pt has a supportive to assist at home. Pt looking to go home tomorrow if medically stable. Goals Grooming Goal Independent Dressing Goal Independent Toileting Goal Independent Bathing Goal Independent Toilet Transfer Goal Independent Shower Transfer Goal Independent Patient/Caregiver Education Goal Demonstrate Post-Op Precautions,Caregiver Independent Assisting Patient Days to Meet Goals 3 Frequency of Treatment Frequency Of Treatment Once a Day Treatment Plan OT Treatment Plan ADL Training,Functional Mobility,Patient/Family Education,Discharge Planning Other Treatment Recommendations and Next shower, caregiver training Treatment Focus Discharge Recommendations OT Discharge Recommendations Home with Assistance Home Equipment Needs FWW , shower chair, LB equipment already issued Transportation Needs at Discharge Private Vehicle
--- NOTE | 2020-03-01 18:40 | PC.NURSE ---
Evening shift note: Alert and oriented x3. Is able to swallow pills without any difficulty. Currently on 2L NC during evening shift assessment, but needs to be titrated up with talking or activity as he destaturates into the mid 80's. Pt denies SOB, is able to effectively use the IS reaching [phone]. Worked with PT and OT, tolerated well. Pt will wear home CPAP with 4L bleed in tonight when sleeping. Dressing to lower back saturated this afternoon, dressing changed per orders, sanguinous drainage noted. Gomes catheter d/c'd during dayshift, pt has voided in urinal. Bed low and locked, call light within reach, no further needs at this time, will continue to monitor.
[2020-03-01] MEDS: PRAMIPEXOLE 0.25 MG TABLET 0.5 MG PO (20:21)
[2020-03-01] MEDS: SENNOSIDES 8.6 MG TABLET 17.2 MG PO (20:22)
[2020-03-01] MEDS: ATORVASTATIN 20 MG TABLET PO (20:22)
[2020-03-02] VITALS (15 sets, daily range): BP systolic 104–153; BP diastolic 58–83; PULSE 75–92; RESP 14–25; TEMP 36.2–37; O2SAT 85–96
[2020-03-02] MEDS: OXYCODONE/ACETAMINOPHEN 5/325 TABLET 2 TAB PO ×3 (00:02→23:48)
--- NOTE | 2020-03-02 07:16 | DI.RAD.S_ITS ---
PROCEDURE: XR CHEST 2V INDICATIONS: decreased O2 sat TECHNIQUE: 2 views of the chest were acquired. COMPARISON: [facility], CT, CT CHEST WITH CONTRAST, 01/04/2019, 13:02. [facility], CR, XR CHEST 1 VIEW, 03/19/2019, 8:27. [facility], CR, XR CHEST 1V, 02/29/2020, 16:37. [facility], CR, XR CHEST 1V, 03/01/2020, 6:06. FINDINGS: Surgical changes and devices: None. Lungs and pleura: There is an oval-shaped masslike density in the right apex medially. There are bibasilar infiltrate or atelectasis. Chronic right hemidiaphragm eventration. No pleural effusions or pneumothorax. Mediastinum: Mediastinal contours are normal. Heart size is normal. Bones and chest wall: No suspicious bony abnormalities. Soft tissues appear unremarkable. IMPRESSION: 1. Bibasilar infiltrate or atelectasis. 2. A masslike density in the right apex medially. A chest CT is suggested for follow-up. Dictated by: Saundra Schwarz M.D. on 03/02/2020 at 10:58 Approved by: Saundra Schwarz M.D. on 03/02/2020 at 11:01
--- NOTE | 2020-03-02 07:17 | PM.PNPO.1 ---
Subjective Subjective Date Patient Seen: 03/02/20 Time Patient Seen: 07:17 Interval history: He is doing much better. Pain under good control. He has been up with assistance and ambulating. He had been doing better and weaning off the oxygen yesterday but at nighttime even with the CPAP he had to go back up on his oxygen supplementation. Exam Vital Signs (past 8 hours): - 03/02/20 00:14 03/02/20 01:26 03/02/20 04:28 Temperature 97.3 F L 97.9 F Pulse Rate 81 75 86 Respiratory Rate 24 14 18 Blood Pressure 104/64 135/62 Pulse Oximetry 93 96 94 03/02/20 04:40 Temperature Pulse Rate Respiratory Rate Blood Pressure Pulse Oximetry 94 Fraction of Inspired Oxygen 60 Oxygen Delivery Method CPAP Oxygen Flow Rate 7 Const Orientation: alert and oriented x3 Back/Spine/Pelvis Other: CDI. 5/5 motor both lower extremities. Objective Labs Result Diagrams: 03/01/20 04:33 Assessment & Plan Post-op Postoperative Procedures: Procedures Operation Date: 02/29/20 10:15 Actual Procedures Side Surgeon p L2-S1 laminectomies,L4-S1 instrumented fusion w/bone graft Austin Garcia MD His chest x-ray yesterday was unchanged with some left patchy infiltrate at the base. This may be atelectasis but I am going to check 1 more chest x-ray today. Due to his oxygen requirements I will also have Medicine see him. If he is doing better later, could still possibly discharge home.
--- NOTE | 2020-03-02 08:54 | PT.IPTN ---
Current Diagnoses Other forms of scoliosis, lumbar region (02/29/20) Spondylolisthesis, lumbar region (02/29/20) Spinal stenosis, lumbar region with neurogenic claudication (02/29/20) Surgery Performed Operation Date: 02/29/20 10:15 Actual Procedures p L2-S1 laminectomies,L4-S1 instrumented fusion w/bone graft - Austin Garcia MD Physical Therapy Treatment Note M2 PT-IP Current Condition Start: 03/01/20 08:42 Freq: NEEDED Status: Active Protocol: Document 03/01/20 11:13 (Rec: 03/01/20 11:32 [id number]) Physical Therapy Current Condition Current Condition Evaluation Date 03/01/20 Treatment Diagnosis L2-S1 laminectomies,L4-S1 instrumented fusion Onset Date 02/29/20 Precautions Lumbar Precautions Log Roll,No Twisting,Limit Bending,Lifting Restriction of 10 lbs,Gait Belt above Incisional Area Weight Bearing Status Weight Bearing Status Weight Bear as Tolerated M3 PT-IP Subjective Start: 03/01/20 08:42 Freq: NEEDED Status: Active Protocol: Document 03/02/20 08:48 [facility] (Rec: 03/02/20 08:54 [facility] [id number]) Subjective Physical Therapy Visit Type Type Treatment Note Visit Start Time 08:17 Visit Stop Time 08:42 Total Visit Minutes 25 Number of 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 CIRCUIT DESIGNER Visits 0 Physical Therapy Visit Comments Patient Comments Pt reports he is hoping ot go home Therapy Pain Assessment Pain When Pain Assessed During Mobility Pain Present Pain Present Pain Reported M4 PT-IP Mobility and Gait Start: 03/01/20 08:42 Freq: NEEDED Status: Active Protocol: Document 03/02/20 08:48 [facility] (Rec: 03/02/20 08:54 [facility] [id number]) PT-Bed Mobility Assessment Rolling Type of Rolling Log Rolling,Roll to Right Level of Assist Independent Scooting Scooting to Edge of Bed Independent PT-Transfer Assessment Sit to and From Stand Sit to and from Stand Independent Equipment Transfer Assistive Device Gait Belt,Front Wheeled Walker Orthotic/Prosthetic Devices or Brace: No Comments Mobility Comments Pt did log roll with talking through motion without any assistance and was able to stand indep without assistance with use of UE and FWW. HE then amb to stairs about 250ft then ascended and descended stairs with 1 rail. He was safe with amb and stairs without cueing. O2 after stairs 89% and inc to 91 % with about 30 sec of deep breaths. He talked throughout all of amb and was at 86% upon return to room and after 1-2 min with talking pt inc to 92% O2 on RA. RN notified Gait Assessment Gait Gait Assistance Required: Standby Assistance Distance (Feet) 500 Able to Maintain Weight Bearing Status Yes During Gait Assistive Devices Assistive Device Gait Belt,Front Wheeled Walker Orthotic/Prosthetic Devices or Brace: No Gait Deviations General Gait Pattern Decreased Stride Length, Decreased Feet Clearance, Flexed Trunk Factors Limiting Gait Function Factors Limiting Gait Function Decreased Activity Tolerance, Decreased Strength,Limited Range of Motion,Pain,Poor Balance,Respiratory Distress Stair Climbing Assessment Evaluation Level of Assist On Stairs Standby Assistance Devices Stair Climbing Assistive Devices Right Railing Technique/Endurance Stair Climbing Direction Ascend and Descend Stair Climbing Technique Step to Step Number of Steps Climbed 3 Comments Stair Climbing Comments pt was very steady while stair climbing without increased discomfort. PT-Balance Assessment Sitting Balance and Reactions Static Sitting Balance Ability Normal Dynamic Sitting Balance Ability Normal Standing Balance and Reactions Static Standing Balance Ability Good Dynamic Standing Balance Ability Good Device Used FWW M5 PT-IP Objective Assessments Start: 03/01/20 08:42 Freq: NEEDED Status: Active Protocol: Document 03/01/20 11:13 (Rec: 03/01/20 11:32 [id number]) Orientation Orientation/Cognition Level of Alertness Alert Orientation Name,Age,Birthday,Month,Date, Year,Day of Week,Place, Situation Language Function Ability No Deficits Noted Safety Awareness Understands Safety Issues Memory Description No Deficits Noted Gross Range of Motion Upper Extremity ROM Assessment Within Functional Limits Lower Extremity ROM Assessment Within Functional Limits Strength Upper Extremity Strength Assessment Within Functional Limits Lower Extremity Strength Assessment Bilaterally Impaired Hip 4-/5 Knee 4/5 Ankle 4/5 Coordination Assessment Gross Coordination Gross Coordination WNL Sensation Assessment Sensation Gross Sensation WNL Muscle Tone Muscle Tone WNL Yes M6 PT-IP Treatment Start: 03/01/20 08:42 Freq: NEEDED Status: Active Protocol: Document 03/02/20 08:48 [facility] (Rec: 03/02/20 08:54 [facility] [id number]) Physical Therapy Treatment Education Education Provided Precautions,Safety M7 PT-IP Assessment and Plan Start: 03/01/20 08:42 Freq: NEEDED Status: Active Protocol: Document 03/02/20 08:48 [facility] (Rec: 03/02/20 08:54 [facility] [id number]) PT Summary Assessment and Plan Summary Impairments Pain,ROM,Strength,Balance,Bed Mobility,Transfers,Gait, Activity Tolerance Assessment Summary Pt is doing very well with all mobility besides slight drop in O2 after mobilization. RN notified. Pt is safe with all mobility and understands his precautions well. As long as O2 saturation is able to remain up, pt is cleared by PT for DC. Goals Bed Mobility Goal Standby Assistance Transfer Goal Standby Assistance,Front Wheeled Walker Gait Goal Standby Assistance,Front Wheel Walker Gait Distance 200 Other Goals 3 REGINALDO with R rail SBA/CGA Days to Meet Goals 3 Frequency of Treatment Frequency Of Treatment Twice a Day Treatment Plan Physical Therapy Treatment Plan Bed Mobility Training,Transfer Training,Gait Training, Therapeutic Exercise,Balance Retraining,Post Op Education, Discharge Planning,Hot or Cold Pack,Neuromuscular Re-ed Other Recommendations and Next Treatment cont tow ork on breathing Focus duirng amb Recommendations To Nursing Amount of Assist Needed Standby Assistance Discharge Recommendations PT Discharge Recommendations Home with Assistance Equipment Needed for Home Before shower chair & possible need Discharge for raised toilet seat Transportation Needs at Discharge Private Vehicle
[2020-03-02] MEDS: MULTIVITAMIN 1 TABLET 1 TAB PO (09:08)
[2020-03-02] MEDS: AMLODIPINE 5 MG TABLET 10 MG PO (09:08)
[2020-03-02] MEDS: GABAPENTIN 600 MG TABLET PO ×3 (09:08→22:09)
[2020-03-02] MEDS: DULOXETINE 30 MG CAPSULE 90 MG PO (09:09)
[2020-03-02] MEDS: CELECOXIB 200 MG CAPSULE PO ×2 (09:09→21:30)
[2020-03-02] MEDS: DOCUSATE 100 MG CAPSULE PO ×2 (09:09→21:30)
[2020-03-02] MEDS: PANTOPRAZOLE 40 MG TABLET PO (09:09)
[2020-03-02] MEDS: lisinopriL 20 MG TABLET PO (09:09)
[2020-03-02] MEDS: ASCORBIC ACID 500 MG TABLET 1000 MG PO ×2 (09:09→21:30)
[2020-03-02] MEDS: CYANOCOBALAMIN (VITAMIN B-12) 500 MCG TABLET 2000 MCG PO (09:09)
[2020-03-02] MEDS: LORATADINE 10 MG TABLET PO (09:09)
[2020-03-02] MEDS: OXYCODONE/ACETAMINOPHEN 5/325 TABLET 1 TAB PO ×3 (09:10→17:42)
[2020-03-02] MEDS: CHOLECALCIFEROL (VITAMIN D3) 5,000 UNIT TABLET 5000 UNIT PO (09:10)
[2020-03-02] MEDS: FLUTICASONE 120 SPRAY/16 GM SPRAY.SUSP NASAL (09:11)
--- NOTE | 2020-03-02 09:47 | OT.IP.EVAL ---
Current Diagnoses Other forms of scoliosis, lumbar region (02/29/20) Spondylolisthesis, lumbar region (02/29/20) Spinal stenosis, lumbar region with neurogenic claudication (02/29/20) Surgery Performed Operation Date: 02/29/20 10:15 Actual Procedures p L2-S1 laminectomies,L4-S1 instrumented fusion w/bone graft - Austin Garcia MD Past Medical History (Last Updated 02/23/20 @ 14:30 by Ella Whitehead RN) Arthritis (Acute) Depression (Acute) GERD (gastroesophageal reflux disease) (Acute) Hemorrhoids (Acute) History of exposure to tuberculosis (Acute) HLD (hyperlipidemia) (Acute) HTN (hypertension) (Acute) TJ (obstructive sleep apnea) (Acute) Peripheral neuropathy (Acute) RLS (restless legs syndrome) (Acute) Skin cancer (Acute) Surgical History (Last Updated 02/23/20 @ 14:30 by Ella Whitehead RN) H/O umbilical hernia repair (Acute 2018) History of bilateral carpal tunnel release (Acute) History of colonoscopy (Acute) History of esophageal hernia repair (Acute 2018) History of lumbar surgery (Acute 2008) Hx of appendectomy (Acute) Hx of sinus surgery (Acute 2017) Hx of tonsillectomy (Acute) Occupational Therapy Inpatient Evaluation/Re-Eval M2 OT-IP Current Condition Start: 03/01/20 17:28 Freq: Status: Active Protocol: Document 03/01/20 16:23 [facility] (Rec: 03/01/20 18:11 [facility] [id number]) Occupational Therapy Current Condition Current Condition Evaluation Date 03/01/20 Treatment Diagnosis Lumbar stenosis with radiculopathy, s/p L4-S1 instru fusion Diagnosis Onset Date 02/29/20 M3 OT- IP Subjective and Pain Start: 03/01/20 17:28 Freq: Status: Active Protocol: Document 03/02/20 13:38 [facility] (Rec: 03/02/20 13:49 [facility] [id number]) OT- Subjective Occupational Therapy Visit Type Type Treatment Note Visit Start Time 09:47 Visit Stop Time 10:36 Total Visit Minutes 49 Occupational Therapy Visit Comments Patient Comments Pt agreed to shower. Patient/Caregiver Goals To go home. OT Pain Assessment Pain When Pain Assessed At Rest Pain Present Pain Present Pain Reported Location back Intensity 4 Scale Used Numeric (0 - 10) M4 OT- IP ADL's Start: 03/01/20 17:28 Freq: Status: Active Protocol: Document 03/02/20 13:38 [facility] (Rec: 03/02/20 13:49 [facility] [id number]) OT ADL-Dressing General Eval Upper Body Dressing Ability Independent Lower Body Dressing Ability Standby Assistance Comments OT Dressing Comments Pt able to use LB dressing equipment to be able to sidney socks, pants and slip on shoes with good safety for back precautions. OT ADL-Bathing Bathing Type Bathing Type Shower General Evaluation Bathing Ability Moderate Assistance Areas Needing Assistance Wash/Dry Back,Wash/Dry Lower Extremities Comments OT Bathing Comments It was determined best for pt to have shower chair at home when showering. Pt states already thinking about getting a shower chair for his sister , however pointed out that to keep in mind of how big he is versus the size of his sister and what may be needed. M5 OT- IP IADL's Start: 03/01/20 17:28 Freq: Status: Active Protocol: Document 03/01/20 16:23 [facility] (Rec: 03/01/20 18:11 [facility] [id number]) OT-Instrumental Activities of Daily Living Home Safety Awareness Awareness of Need for Assistance at Home Good Awareness Ability to Problem Solve Emergency Able to Problem Solve Situations Medication Management Medication Management No Deficits Identified Money Management Money Management No Deficits Identified Shirt Sewer Shirt Sewer Caregiver Provides Assist M6 OT- IP Functional Cognition Start: 03/01/20 17:28 Freq: Status: Active Protocol: Document 03/02/20 13:38 [facility] (Rec: 03/02/20 13:49 [facility] [id number]) Cognitive Factors Limiting Selfcare Function Cognitive Comments Cognitive Assessment Comments No deficits. M7 OT- IP Mobility and Balance Start: 03/01/20 17:28 Freq: Status: Active Protocol: Document 03/02/20 13:38 [facility] (Rec: 03/02/20 13:49 [facility] [id number]) OT-Transfer Assessment Sit to and From Stand Sit to and from Stand Standby Assistance Transfers Transfer Ability Standby Assistance Technique Transfer Destination Bed,Shower Stall Transfer Technique Stand Step Pivot Devices Transfer Assistive Devices Gait Belt,Front Wheeled Walker Comments Mobility Comments SBA with FWW and good safety. Pt's O2 on RA from 89% to 95% while showering and did not complain of any symptoms throughout the session. Note his right middle finger appears to spanish moss picker the O2 reading more accurately. OT- Gait Assessment Comments Gait Ability Comments SBA with FWW. OT- Balance Assessment Sitting Balance and Reactions Static Sitting Balance Ability Normal Dynamic Sitting Balance Ability Normal Standing Balance and Reactions Static Standing Balance Ability Good M8 OT- IP Objective Assessments Start: 03/01/20 17:28 Freq: Status: Active Protocol: Document 03/01/20 16:23 [facility] (Rec: 03/01/20 18:11 [facility] [id number]) OT-Muscle Tone Assessment Muscle Tone WNL Yes M9 OT- IP Assessment and Plan Start: 03/01/20 17:28 Freq: Status: Active Protocol: Document 03/02/20 13:38 [facility] (Rec: 03/02/20 13:49 [facility] [id number]) OT Summary Assessment and Plan Potential Rehabilitation Potential Excellent Analytic Complexity at Evaluation Low Summary Progress Towards Goals Progressing Toward Goals Assessment Summary Pt doing well and able to shower, and both he and his have good understanding for all OT needs. Pt's main barrier that his O2 readings drops at times under 90% during exertion. Pt to go home with to assist when medically stable. Goals Grooming Goal Independent Dressing Goal Independent Toileting Goal Independent Bathing Goal Independent Toilet Transfer Goal Independent Shower Transfer Goal Independent Patient/Caregiver Education Goal Demonstrate Post-Op Precautions,Caregiver Independent Assisting Patient Days to Meet Goals 1 Frequency of Treatment Frequency Of Treatment Once a Day Treatment Plan OT Treatment Plan Patient/Family Education, Discharge Planning Other Treatment Recommendations and Next Touch base with pt and if Treatment Focus they have any other questions for OT needs. Discharge Recommendations OT Discharge Recommendations Home with Assistance Home Equipment Needs shower chair Transportation Needs at Discharge Private Vehicle
--- NOTE | 2020-03-02 10:36 | OT.IP.TRT ---
Current Diagnoses Other forms of scoliosis, lumbar region (02/29/20) Spondylolisthesis, lumbar region (02/29/20) Spinal stenosis, lumbar region with neurogenic claudication (02/29/20) Surgery Performed Operation Date: 02/29/20 10:15 Actual Procedures p L2-S1 laminectomies,L4-S1 instrumented fusion w/bone graft - Austin Garcia MD Occupational Therapy Treatment Note M2 OT-IP Current Condition Start: 03/01/20 17:28 Freq: Status: Active Protocol: Document 03/01/20 16:23 [facility] (Rec: 03/01/20 18:11 [facility] [id number]) Occupational Therapy Current Condition Current Condition Evaluation Date 03/01/20 Treatment Diagnosis Lumbar stenosis with radiculopathy, s/p L4-S1 instru fusion Diagnosis Onset Date 02/29/20 M3 OT- IP Subjective and Pain Start: 03/01/20 17:28 Freq: Status: Active Protocol: Document 03/02/20 13:38 [facility] (Rec: 03/02/20 13:49 [facility] [id number]) OT- Subjective Occupational Therapy Visit Type Type Treatment Note Visit Start Time 09:47 Visit Stop Time 10:36 Total Visit Minutes 49 Occupational Therapy Visit Comments Patient Comments Pt agreed to shower. Patient/Caregiver Goals To go home. OT Pain Assessment Pain When Pain Assessed At Rest Pain Present Pain Present Pain Reported Location back Intensity 4 Scale Used Numeric (0 - 10) M4 OT- IP ADL's Start: 03/01/20 17:28 Freq: Status: Active Protocol: Document 03/02/20 13:38 [facility] (Rec: 03/02/20 13:49 [facility] [id number]) OT ADL-Dressing General Eval Upper Body Dressing Ability Independent Lower Body Dressing Ability Standby Assistance Comments OT Dressing Comments Pt able o use LB dressing equipment to be able to sidney socks, pants and slip on shoes with good safety for back precautions. OT ADL-Bathing Bathing Type Bathing Type Shower General Evaluation Bathing Ability Moderate Assistance Areas Needing Assistance Wash/Dry Back,Wash/Dry Lower Extremities Comments OT Bathing Comments It was determined best for pt to have shower chair at home when showering. Pt states already thinking about getting a shower chair for his sister , however pointed out that to keep in mind or how big he is versus the size of his sister and what may be needed. M5 OT- IP IADL's Start: 03/01/20 17:28 Freq: Status: Active Protocol: Document 03/01/20 16:23 [facility] (Rec: 03/01/20 18:11 [facility] [id number]) OT-Instrumental Activities of Daily Living Home Safety Awareness Awareness of Need for Assistance at Home Good Awareness Ability to Problem Solve Emergency Able to Problem Solve Situations Medication Management Medication Management No Deficits Identified Money Management Money Management No Deficits Identified Sheet Pile Hammer Operator Sheet Pile Hammer Operator Caregiver Provides Assist M6 OT- IP Functional Cognition Start: 03/01/20 17:28 Freq: Status: Active Protocol: Document 03/02/20 13:38 [facility] (Rec: 03/02/20 13:49 [facility] [id number]) Cognitive Factors Limiting Selfcare Function Cognitive Comments Cognitive Assessment Comments No deficits. M7 OT- IP Mobility and Balance Start: 03/01/20 17:28 Freq: Status: Active Protocol: Document 03/02/20 13:38 [facility] (Rec: 03/02/20 13:49 [facility] [id number]) OT-Transfer Assessment Sit to and From Stand Sit to and from Stand Standby Assistance Transfers Transfer Ability Standby Assistance Technique Transfer Destination Bed,Shower Stall Transfer Technique Stand Step Pivot Devices Transfer Assistive Devices Gait Belt,Front Wheeled Walker Comments Mobility Comments SBA with FWW and good safety. Pt's O2 on RA from 89% to 95% while showering and did not complain of any symptoms throughout the session. Note his right middle finger appears to cook pickled meat the O2 reading more accurately. OT- Gait Assessment Comments Gait Ability Comments SBA with FWW. OT- Balance Assessment Sitting Balance and Reactions Static Sitting Balance Ability Normal Dynamic Sitting Balance Ability Normal Standing Balance and Reactions Static Standing Balance Ability Good M8 OT- IP Objective Assessments Start: 03/01/20 17:28 Freq: Status: Active Protocol: Document 03/01/20 16:23 [facility] (Rec: 03/01/20 18:11 [facility] [id number]) OT-Muscle Tone Assessment Muscle Tone WNL Yes M9 OT- IP Assessment and Plan Start: 03/01/20 17:28 Freq: Status: Active Protocol: Document 03/02/20 13:38 [facility] (Rec: 03/02/20 13:49 [facility] [id number]) OT Summary Assessment and Plan Potential Rehabilitation Potential Excellent Analytic Complexity at Evaluation Low Summary Progress Towards Goals Progressing Toward Goals Assessment Summary Pt doing well and able to shower and both he and his have good understanding for all OT needs. Pt's main barrier that his O2 readings drops at times under 90% during exertion. Pt to go home with to assist when medically stable. Goals Grooming Goal Independent Dressing Goal Independent Toileting Goal Independent Bathing Goal Independent Toilet Transfer Goal Independent Shower Transfer Goal Independent Patient/Caregiver Education Goal Demonstrate Post-Op Precautions,Caregiver Independent Assisting Patient Days to Meet Goals 1 Frequency of Treatment Frequency Of Treatment Once a Day Treatment Plan OT Treatment Plan Patient/Family Education, Discharge Planning Other Treatment Recommendations and Next Touch base with pt and if Treatment Focus they have any other questions for OT needs. Discharge Recommendations OT Discharge Recommendations Home with Assistance Home Equipment Needs shower chair Transportation Needs at Discharge Private Vehicle
--- NOTE | 2020-03-02 14:47 | PC.NURSE ---
Pt still requiring intermittent O2 while awake and during sleep. While awake, pt is noted to frequently sustain 85-89% SPO2 at rest and with activity. He denies overt symptoms of respiratory distress. While napping, Pt is noted to be 86% on CPAP with 4L bleed in requiring upward titration to 7L to maintain SPO2 93%. Otherwise, VSS and pt is mobilizing with SBA and fww. Reports beginning to feel constipated. Accepted prune juice x2 today. Using call light appropriately. Pain well controlled with PRN percocet.
--- NOTE | 2020-03-02 14:52 | PT-IP ANOTE ---
Attempted to contact pt for PM treat. RN states he just went to sleep and asked to be allowed to sleep. Will check in with pt tomorrow AM.
--- NOTE | 2020-03-02 15:53 | CM.DPC ---
DCP: continued: EMR reviewed. See that OT and PT have been seeing pt and he is cleared for home setting with his 's supportive care when stable for same. Pt has had some issues with low oxygen saturations. Dr. Garcia stated he planned to have hospitalists consult and that pt still might d/c to home setting later this evening. Will check in tomorrow for any prn followup.
--- NOTE | 2020-03-02 18:46 | PC.NURSE ---
Addendum entered by Juliana Lloyd R.N. 03/02/20 22:51: Pt taken to CT for chest CTA. Pt transported on 6 L NC. SPO2 remained mainly in low 90s. Down to 83% initially when laying down in CT. Pt now back in room. When laying on L side SPO2 increased from 86% on R side to 96% on Cpap with 7 L O2 bleed in. Original Note: Dayshift Note: Pt checked on and assessed. Pt received sleeping in bed, on cpap with 7 L O2 bleed in, SPO2 while sleeping on bipap was 94%. Pt then up to bathroom, RA trial with SPO2 86%. Initial respiratory assessment with diminished lung sounds in RLL. Pt then placed on 4 L NC up in chair, doing IS with breaths up to 2000 ml. Pt able to hold breath well and deep breathe. Pt is asymptomatic with desaturation. Dr. Tang to bedside, labs and CTA ordered for follow-up for oxygen requirements. Will continue to monitor, notify MD with changes.
--- NOTE | 2020-03-02 18:47 | DI.CT.S_ITS ---
PROCEDURE: CT ANGIO CHEST PE PROTOCOL INDICATIONS: hypoxia TECHNIQUE: After the administration of intravenous contrast, 2 mm thick sections acquired from the pulmonary apices to the posterior costophrenic angles. 3-dimensional maximum intensity projection (MIP) coronal and sagittal reformats were then acquired through the thorax. For radiation dose reduction, the following was used: automated exposure control, adjustment of mA and/or kV according to patient size. COMPARISON: CT, CT CHEST ABD PELVIS W CON, 11/14/2016, 21:35. [facility], CT, CT CHEST WITH CONTRAST, 01/04/2019, 13:02. [facility], CR, XR CHEST 2V, 03/02/2020, 9:42. FINDINGS: Image quality: Excellent. Pulmonary arteries: Pulmonary arteries are normal in size, and demonstrate no intraluminal filling defects to suggest central pulmonary embolism. Lungs and pleura: Right lower lobe infiltrate and consolidation consistent with pneumonia. There bibasilar atelectasis. Trace pleural effusions bilaterally. No pneumothorax. Mild emphysema. Central and peripheral airways are patent. Mediastinum: Heart size is normal, without pericardial effusion. Mild mediastinal or hilar adenopathy. For instance, there is a 1.4 x 2.0 cm cm subcarinal lymph node. A 1.5 cm right hilar lymph node is noted. Thoracic aorta is normal in caliber and enhancement. Esophagus is normal in caliber. Moderate sized hiatal hernia. Bones and chest wall: No suspicious bony lesions. Ribs and thoracic spine appear intact throughout. Thyroid gland is normal . No axillary or supraclavicular adenopathy. Abdomen: Visualized upper abdominal solid organs appear normal in the early arterial phase of enhancement. IMPRESSION: 1. No pulmonary embolism. 2. Right lower lobe pneumonia. 3. Trace pleural effusions bilaterally and bibasilar atelectasis. 4. Mild mediastinal and hilar lymphadenopathy, most likely reactive. 5. Mild emphysema. 6. Moderate sized hiatal hernia. 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 Dictated by: Saundra Schwarz M.D. on 03/03/2020 at 8:04 Approved by: Saundra Schwarz M.D. on 03/03/2020 at 8:09
--- NOTE | 2020-03-02 18:49 | PM.CN ---
History of Present Illness Consult details Date Patient Seen: 03/02/20 Time Patient Seen: 18:15 Chief complaint: INPT Reason for consult: hypoxia Requesting provider: Austin Garcia Narrative: Patient is 69-year-old male previous smoker with history of hypertension, hyperlipidemia, hiatal hernia surgery, sleep apnea, noncompliant with home CPAP, depression, lumbar stenosis who is status post multilevel lumbar laminectomy and fusion on February 28. Patient has had postop hypoxia. Right after surgery he was requiring 10-12 L O2 and even 14 L O2 on evening postop. On following day he was required 2-3 L O2. Since late last night he has been requiring up to 7 L O2. He does not feel short of breath. In fact he walked around with physical therapy and did stairs and did not feel out of breath. He denies pleuritic or other chest pain. He has been using incentive spirometer. Chest x-ray on February 28 showed patchy opacity in left lung base compatible with atelectasis, aspiration or pneumonia. Repeat chest x-ray March 01 showed stable left lung findings. On chest x-ray today March 02 radiologist noted bibasilar infiltrate or atelectasis and a masslike density in the right medial apex. Patient has not had fevers or cough. He is a previous smoker having quit in 1998 with prior 60 pack year history. He has sleep apnea but does not use CPAP at home due to CPAP fit problems. Patient states he takes frequent naps during the day. He has been tried on several different CPAP without success. Meds Home Medications and Allergies Home Medications Medication Instructions Recorded Confirmed Type amlodipine 10 mg PO DAILY 02/23/20 02/29/20 History ascorbic acid (vitamin C) [Vitamin 1 g PO BID 02/23/20 02/29/20 History C] atorvastatin 20 mg PO DAILY 02/23/20 02/29/20 History cholecalciferol (vitamin D3) 125 mcg PO DAILY 02/23/20 02/29/20 History [Vitamin D3] cyanocobalamin (vitamin B-12) 2,000 mcg PO DAILY 02/23/20 02/29/20 History [Vitamin B-12] duloxetine 90 mg PO DAILY 02/23/20 02/29/20 History fluticasone propionate 2 spray INTRANASAL DAILY 02/23/20 02/29/20 History gabapentin 600 mg PO TID 02/23/20 02/29/20 History ibuprofen 600 mg PO QD-BID PRN 02/23/20 02/29/20 History lisinopril 20 mg PO DAILY 02/23/20 02/29/20 History loratadine 10 mg PO DAILY 02/23/20 02/29/20 History multivitamin 1 cap PO DAILY 02/23/20 02/29/20 History pantoprazole 40 mg PO DAILY 02/23/20 02/29/20 History pramipexole 0.5 mg PO BEDTIME 02/23/20 02/29/20 History Allergies Allergy/AdvReac Type Severity Reaction Status Date / Time No Known Drug Allergies Allergy Verified 02/23/20 14:16 Review of Systems Review of Systems ROS: Yes All systems reviewed with the patient and are negative except as otherwise documented Exam Vital Signs (past 8 hours): - 03/02/20 12:05 03/02/20 13:41 03/02/20 13:49 Temperature 97.1 F L Pulse Rate 84 Respiratory Rate 17 Blood Pressure 118/59 L Pulse Oximetry 92 93 88 L 03/02/20 14:16 03/02/20 14:29 03/02/20 15:30 Temperature Pulse Rate Respiratory Rate Blood Pressure Pulse Oximetry 88 L 94 94 03/02/20 16:00 03/02/20 16:05 Temperature 97.9 F Pulse Rate 83 Respiratory Rate 22 Blood Pressure 120/64 Pulse Oximetry 86 L 92 Fraction of Inspired Oxygen 60 Oxygen Delivery Method Room Air Oxygen Flow Rate 7 Narrative Exam Narrative: General: This is an alert very pleasant male who appears comfortable sitting in bedside chair HEENT: Pupils equal and reactive, oropharynx unremarkable Neck: Supple, no lymphadenopathy Lungs: Breathing nonlabored, good bilateral chest expansion, clear to auscultation Heart: Normal S1 and S2, regular rate and rhythm, no murmur Abdomen: Soft, nontender, no HSM Extremities: Warm, dry, trace pedal edema Neurological: Sensorium intact, no focal weakness Objective Labs Result Diagrams: 03/01/20 04:33 Assessment & Plan Assessment & Plan narrative: This is a 69-year-old male former smoker with history of hypertension, hyperlipidemia, untreated sleep apnea, status post lumbar laminectomy fusion, with postop hypoxia. 1. Acute hypoxic respiratory failure, postop -room air sat 86%, patient presently requiring 7 L O2 to maintain sat above 90, chest x-ray with lower lung infiltrates consistent with atelectasis versus pneumonia and also question of right apex mass -patient is asymptomatic, he is not having fever, cough and does not appear acutely ill to suggest pneumonia, not having pleuritic pain or tachycardia to suggest PE -likely hypoxic due to atelectasis, he may have underlying COPD with his prior history of heavy smoking -check CBC, BMP, procalcitonin -obtain chest CTA to evaluate for possible pneumonia, rule out PE, and also evaluate the right apex abnormality -obtain ABG -continue incentive spirometry 2. Sleep apnea, chronic -patient noncompliant with home CPAP -continue CPAP during sleep hours 3. Hypertension, chronic -adequate control, continue lisinopril and amlodipine 4. Hyperlipidemia, chronic -continue atorvastatin
[2020-03-02] MEDS: HYDROMORPHONE 0.5 MG INJ IV (20:20)
[2020-03-02 20:28] LABS: Add Manual Diff / Slide Review NO; Basophils Absolute Auto 0 /uL (0-100); Basophils Percent Auto 0.2 % (0-2); Eosinophils Absolute Auto 300 /uL (0-450); Hematocrit 31.8 % (41-53); Hemoglobin 10.5 g/dL (13.5-17.5); Lymphocytes Absolute Auto 1700 /uL (1100-4500); Lymphocytes Percent Auto 12.2 % (25-40); Mean Corpuscular Hemoglobin 30.3 PG (26-34); Mean Corpuscular Volume 91.9 fL (80-100); Monocytes Absolute Auto 1800 /uL (0-900); Monocytes Percent Auto 12.8 % (3-14); Neutrophils Absolute Auto 10400 /uL (1500-7000); Neutrophils Percent Auto 72.8 % (50-75); Platelet Count 181 X10^3/uL (150-400); Red Blood Cell Count 3.46 X10^6/uL (4.5-5.9); Red Cell Distribution Width 13.1 % (11.6-14.8); White Blood Cell Count 14.2 X10^3/uL (4.5-11.0)
[2020-03-02 20:33] LABS: Blood Urea Nitrogen 27 mg/dL (9-20); Calcium 9.3 mg/dL (8.4-10.2); Carbon Dioxide 30 mmol/L (22-32); Chloride 98 mmol/L (98-107); Estimated Glomerular Filt Rate 58.2 mL/min (>60); Glucose 117 mg/dL (80-110); HEMOLYSIS < 15 (0-50); Potassium 4.3 mmol/L (3.4-5.1); Sodium 132 mmol/L (137-145)
[2020-03-02 20:48] LABS: HCO3 ABG 25 mmol/L (22-26); Oxygen Saturation ABG 91 % (95-100); PCO2 ABG 37.5 mmHg (35-45); PO2 ABG 58 mmHg (80-100); TCO2 ABG 26 mmol/L (21-31); pH ABG 7.43 (7.35-7.45)
[2020-03-02 20:49] LABS: Fractionated Inspired Oxygen 36
[2020-03-02] MEDS: SENNOSIDES 8.6 MG TABLET 17.2 MG PO (21:30)
[2020-03-02] MEDS: ATORVASTATIN 20 MG TABLET PO (21:30)
[2020-03-02] MEDS: PRAMIPEXOLE 0.25 MG TABLET 0.5 MG PO (22:09)
[2020-03-03] VITALS (12 sets, daily range): BP systolic 109–152; BP diastolic 62–77; PULSE 76–102; RESP 16–23; TEMP 36.2–37.2; O2SAT 91–96
[2020-03-03] MEDS: MULTIVITAMIN 1 TABLET 1 TAB PO (08:01)
[2020-03-03] MEDS: CYANOCOBALAMIN (VITAMIN B-12) 500 MCG TABLET 2000 MCG PO (08:01)
[2020-03-03] MEDS: DOCUSATE 100 MG CAPSULE PO ×2 (08:01→21:43)
[2020-03-03] MEDS: CELECOXIB 200 MG CAPSULE PO ×2 (08:01→21:44)
[2020-03-03] MEDS: OXYCODONE/ACETAMINOPHEN 5/325 TABLET 2 TAB PO ×3 (08:01→23:32)
[2020-03-03] MEDS: MAGNESIUM HYDROXIDE 30 ML UDC PO (08:01)
[2020-03-03] MEDS: DULOXETINE 30 MG CAPSULE 90 MG PO (08:01)
[2020-03-03] MEDS: PANTOPRAZOLE 40 MG TABLET PO (08:02)
[2020-03-03] MEDS: ASCORBIC ACID 500 MG TABLET 1000 MG PO ×2 (08:02→21:42)
[2020-03-03] MEDS: CHOLECALCIFEROL (VITAMIN D3) 5,000 UNIT TABLET 5000 UNIT PO (08:02)
[2020-03-03] MEDS: lisinopriL 20 MG TABLET PO (08:02)
[2020-03-03] MEDS: AMLODIPINE 5 MG TABLET 10 MG PO (08:02)
[2020-03-03] MEDS: LORATADINE 10 MG TABLET PO (08:02)
[2020-03-03] MEDS: GABAPENTIN 600 MG TABLET PO ×3 (08:02→21:43)
[2020-03-03] MEDS: FLUTICASONE 120 SPRAY/16 GM SPRAY.SUSP NASAL (08:06)
--- NOTE | 2020-03-03 08:32 | PM.PNPO.1 ---
Subjective Subjective Date Patient Seen: 03/03/20 Time Patient Seen: 08:32 Interval history: He is doing well. Fairly worn out yesterday evening after moving around all day but good pain control. Still some oxygen requirements overnight but he is currently saturating over 90% on room air. CT scan showed no a pickle mass, just lymph nodes but right lower lobe pneumonia. He was started on Levaquin. Exam Vital Signs (past 8 hours): - 03/03/20 05:05 03/03/20 05:41 Temperature 98.1 F Pulse Rate 83 Respiratory Rate 20 Blood Pressure 136/76 Pulse Oximetry 93 93 Fraction of Inspired Oxygen 50 Oxygen Delivery Method CPAP Oxygen Flow Rate 8 Const Orientation: alert and oriented x3 Back/Spine/Pelvis Other: Mild drainage. 5/5 motor both lower extremities. Objective Labs Result Diagrams: 03/02/20 20:05 03/02/20 20:05 Labs: Laboratory Results - last 24 hr 03/02/20 03/02/20 03/02/20 19:55 20:05 20:05 WBC 14.2 H RBC 3.46 L Hgb 10.5 L Hct 31.8 L MCV 91.9 MCH 30.3 MCHC 33.0 RDW 13.1 Plt Count 181 Neut % (Auto) 72.8 Lymph % (Auto) 12.2 L [place] % (Auto) 12.8 Eos % (Auto) 2.0 Baso % (Auto) 0.2 Neut # (Auto) 07026 H Lymph # (Auto) 1700 [place] # (Auto) 1800 H Eos # (Auto) 300 Baso # (Auto) 0 ABG pH 7.43 ABG pCO2 37.5 ABG pO2 58 L ABG HCO3 25 ABG Total CO2 26 ABG O2 Saturation 91 L ABG Base Excess 1.0 FiO2 36 Sodium Potassium Chloride Carbon Dioxide BUN Creatinine Estimated GFR BUN/Creatinine Ratio Glucose Calcium Procalcitonin 0.20 03/02/20 20:05 WBC RBC Hgb Hct MCV MCH MCHC RDW Plt Count Neut % (Auto) Lymph % (Auto) [place] % (Auto) Eos % (Auto) Baso % (Auto) Neut # (Auto) Lymph # (Auto) [place] # (Auto) Eos # (Auto) Baso # (Auto) ABG pH ABG pCO2 ABG pO2 ABG HCO3 ABG Total CO2 ABG O2 Saturation ABG Base Excess FiO2 Sodium 132 L Potassium 4.3 Chloride 98 Carbon Dioxide 30 BUN 27 H Creatinine 1.23 Estimated GFR 58.2 L BUN/Creatinine Ratio 22.0 Glucose 117 H Calcium 9.3 Procalcitonin Assessment & Plan Post-op Postoperative Procedures: Procedures Operation Date: 02/29/20 10:15 Actual Procedures Side Surgeon p L2-S1 laminectomies,L4-S1 instrumented fusion w/bone graft Austin Garcia MD He is doing better today. Hopefully, with the antibiotics as well as continued mobilization, his oxygen saturations will improve and we will be able to discharge him home.
--- NOTE | 2020-03-03 08:34 | PM.DS.1 ---
History of Present Illness History of Present Illness Date Patient Seen: 03/03/20 Time Patient Seen: 08:34 Chief complaint: INPT Narrative: 69-year-old male with spinal stenosis. He has some pain in the back but primarily severe pain running down the back of both legs as well as weakness and numbness. He has been through physical therapy and an epidural injection. Discharge Providers Provider Date of admission: 02/29/20 09:09 Discharge Date: 03/04/20 Primary care physician: Charlie Mobley DO Consults: 02/29/20 09:58 Consult to Respiratory Therapy Evaluate & Treat Comment: Physician Instructions: Evaluate and treat 02/29/20 18:29 Consult to Occupational Therapy Evaluate & Treat Comment: Physician Instructions: Evaluate and treat Consult to Physical Therapy Evaluate & Treat Comment: Physician Instructions: Evaluate and Treat Consult to Respiratory Therapy Evaluate & Treat Comment: CPAP Physician Instructions: Evaluate and treat 02/29/20 22:23 Consult to Respiratory Therapy Evaluate & Treat Comment: Physician Instructions: Evaluate and treat 03/02/20 20:39 Consult to Respiratory Therapy Evaluate & Treat Comment: Patient uses CPAP, please set him up Physician Instructions: Evaluate and treat Discharge provider: Austin Garcia MD Summary Hospital Course Discharge Diagnosis: Lumbar stenosis with radiculopathy Postoperative pneumonia Hospital Course: He is brought to the operating room on 02/29/2020 where he underwent a L2 through S1 laminectomy as well as an instrumented fusion (TLIF) at L4-5 and L5-S1. Postoperatively he had good pain control mobilize well with physical therapy. However, he required significant oxygen supplementation, even with CPAP at night time. This started getting better but then his nighttime oxygen requirements increased on postoperative day 2. Repeat chest x-ray showed a possible mass in the right apical lung as well as pneumonia versus atelectasis at the right base. Medicine was consulted and a CT scan of the chest was performed showing a lower adenopathy but no mass. It did show a right lower lobe pneumonia. He had no fever or chills or chest pain. However, because of this he was started on Levaquin. By date of discharge he was saturating well on room air. He did have heavy drainage on his dressing the 1st day but this greatly slow down over the next few days. Status at Discharge Cognitive/behavioral status at discharge: oriented Functional status at discharge: uses cane/walker Overall status at discharge: patient is progressing back to baseline Exam Vital Signs (past 8 hours): - 03/03/20 05:05 03/03/20 05:41 Temperature 98.1 F Pulse Rate 83 Respiratory Rate 20 Blood Pressure 136/76 Pulse Oximetry 93 93 Fraction of Inspired Oxygen 50 Oxygen Delivery Method CPAP Oxygen Flow Rate 8 Const Orientation: alert and oriented x3 Back/Spine/Pelvis Other: Mild drainage. 5/5 motor both lower extremities. Objective Labs Result Diagrams: 03/04/20 04:20 03/02/20 20:05 Labs: Laboratory Results - last 24 hr 03/02/20 03/02/20 03/02/20 19:55 20:05 20:05 WBC 14.2 H RBC 3.46 L Hgb 10.5 L Hct 31.8 L MCV 91.9 MCH 30.3 MCHC 33.0 RDW 13.1 Plt Count 181 Neut % (Auto) 72.8 Lymph % (Auto) 12.2 L [place] % (Auto) 12.8 Eos % (Auto) 2.0 Baso % (Auto) 0.2 Neut # (Auto) 14049 H Lymph # (Auto) 1700 [place] # (Auto) 1800 H Eos # (Auto) 300 Baso # (Auto) 0 ABG pH 7.43 ABG pCO2 37.5 ABG pO2 58 L ABG HCO3 25 ABG Total CO2 26 ABG O2 Saturation 91 L ABG Base Excess 1.0 FiO2 36 Sodium Potassium Chloride Carbon Dioxide BUN Creatinine Estimated GFR BUN/Creatinine Ratio Glucose Calcium Procalcitonin 0.20 03/02/20 20:05 WBC RBC Hgb Hct MCV MCH MCHC RDW Plt Count Neut % (Auto) Lymph % (Auto) [place] % (Auto) Eos % (Auto) Baso % (Auto) Neut # (Auto) Lymph # (Auto) [place] # (Auto) Eos # (Auto) Baso # (Auto) ABG pH ABG pCO2 ABG pO2 ABG HCO3 ABG Total CO2 ABG O2 Saturation ABG Base Excess FiO2 Sodium 132 L Potassium 4.3 Chloride 98 Carbon Dioxide 30 BUN 27 H Creatinine 1.23 Estimated GFR 58.2 L BUN/Creatinine Ratio 22.0 Glucose 117 H Calcium 9.3 Procalcitonin Discharge Assessment & Plan Assessment and Plan Assessment: Lumbar stenosis with radiculopathy, now status post laminectomy and fusion. Postoperative pneumonia now on Levaquin Plan of Treatment: Discharge home Discharge Plan Discharge Plan Patient Disposition: Home Discharge comment: Follow-up 1 week with morning Discharge orders & Medications Prescriptions: New celecoxib [Celebrex] 200 mg Capsule 200 mg PO BID PRN (Reason: pain) Qty: 60 RF: 0 docusate sodium [DOK] 100 mg Capsule 100 mg PO BID PRN (Reason: constipation) Qty: 30 RF: 0 hydroxyzine pamoate 25 mg Capsule 25 mg PO Q4HR PRN (Reason: spasms) Qty: 20 RF: 0 oxycodone-acetaminophen 5-325 mg Tablet 1 tab PO Q4HR PRN (Reason: Pain, Moderate (4-6)) Qty: 25 RF: 0 levofloxacin [Levaquin] 750 mg tablet 750 mg PO DAILY Qty: 7 RF: 0 Continued ascorbic acid (vitamin C) [Vitamin C] 1,000 mg Tablet 1 g PO BID RF: 0 atorvastatin 20 mg Tablet 20 mg PO DAILY RF: 0 lisinopril 20 mg Tablet 20 mg PO DAILY RF: 0 pramipexole 0.5 mg Tablet 0.5 mg PO BEDTIME RF: 0 amlodipine 10 mg Tablet 10 mg PO DAILY RF: 0 pantoprazole 40 mg Tablet,Delayed Release (Dr/Ec) 40 mg PO DAILY RF: 0 cyanocobalamin (vitamin B-12) [Vitamin B-12] 2,000 mcg Tablet Extended Release 2,000 mcg PO DAILY RF: 0 multivitamin Capsule 1 cap PO DAILY RF: 0 fluticasone propionate 50 mcg/actuation [place],Suspension 2 spray INTRANASAL DAILY RF: 0 duloxetine 60 mg Capsule,Delayed Release(Dr/Ec) 90 mg PO DAILY RF: 0 cholecalciferol (vitamin D3) [Vitamin D3] 125 mcg (5,000 unit) Tablet 125 mcg PO DAILY RF: 0 loratadine 10 mg Capsule 10 mg PO DAILY RF: 0 gabapentin 600 mg Tablet 600 mg PO TID RF: 0 Discontinued ibuprofen 600 mg Tablet 600 mg PO QD-BID PRN (Reason: Pain) RF: 0 Follow up/Referrals: Charlie Mobley DO [Primary Care Provider] - Austin Garcia MD [Physician] - (as scheduled) Discharge Health Status Multidrug resistant organism: No MDRO Diet/Activity/Treatments Diet: Diet as Tolerated Activity: Limited bending, twisting, lifting 10 lb maximum Skin/Wound/Dressing Care Report to your healthcare provider any signs of infection, such as:: chills, fever Dressing: May change dressing and shower on Friday. Replace with clean dressing when done. Visit Report/Discharge Packet Instructions: DI for Pneumonia -- Adult, DI for Prescription Opioid Use, Oxycodone, Hydroxyzine, Levofloxacin, DI for Transforaminal Lumbar Interbody Fusion Stand Alone Forms: Surgery Discharge Visit Report Forms: Patient Portal/API, Stroke Signs & Symptoms Discharge Data Primary Care Provider: Charlie Mobley Discharges patient from system. Discharge Date/Time: 03/04/20 11:30
--- NOTE | 2020-03-03 09:36 | PT.IPTN ---
Current Diagnoses Other forms of scoliosis, lumbar region (02/29/20) Spondylolisthesis, lumbar region (02/29/20) Spinal stenosis, lumbar region with neurogenic claudication (02/29/20) Surgery Performed Operation Date: 02/29/20 10:15 Actual Procedures p L2-S1 laminectomies,L4-S1 instrumented fusion w/bone graft - Austin Garcia MD Physical Therapy Treatment Note M2 PT-IP Current Condition Start: 03/01/20 08:42 Freq: NEEDED Status: Active Protocol: Document 03/03/20 09:03 TP (Rec: 03/03/20 11:58 TP [id number]) Physical Therapy Current Condition Current Condition Evaluation Date 03/01/20 Treatment Diagnosis L2-S1 laminectomies,L4-S1 instrumented fusion Onset Date 02/29/20 Precautions Lumbar Precautions Log Roll,No Twisting,Limit Bending,Lifting Restriction of 10 lbs,Gait Belt above Incisional Area Weight Bearing Status Weight Bearing Status Weight Bear as Tolerated M3 PT-IP Subjective Start: 03/01/20 08:42 Freq: NEEDED Status: Active Protocol: Document 03/03/20 09:03 TP (Rec: 03/03/20 11:58 TP [id number]) Subjective Physical Therapy Visit Type Type Treatment Note Visit Start Time 09:03 Visit Stop Time 09:36 Total Visit Minutes 33 Notes Student BASSEM Childers supervised by BASSEM Wilson. Number of ADMINISTRATIVE SUPPORT TECHNICIAN Visits 1 Physical Therapy Visit Comments Patient Comments Pt feeling stiff. Disappointed he can't go home due to O2. Patient Goals to return home with . Therapy Pain Assessment Pain When Pain Assessed At Rest Pain Present Pain Present Pain Reported Location back Scale Used stiffness is more bothersome than back pain M4 PT-IP Mobility and Gait Start: 03/01/20 08:42 Freq: NEEDED Status: Active Protocol: Document 03/03/20 09:03 TP (Rec: 03/03/20 11:58 TP [id number]) PT-Transfer Assessment Sit to and From Stand Sit to and from Stand Standby Assistance Equipment Transfer Assistive Device Gait Belt,Front Wheeled Walker Orthotic/Prosthetic Devices or Brace: No Transfers Transfer Destination Chair Transfer Technique Stand Step Pivot Transfer Ability Level of Assist Standby Assistance,Contact Guard Assistance,1 Person Assistance,Use of Upper Extremities Comments Mobility Comments Pt sitting upright in chair eating breakfast upon arrival. Agreeable to participate with PT. SaO2 on RA 87-88% upon entry. Pt disappointed he can't go home due to oxygen levels, feels like he can go home otherwise. Education for diaphragmatic breathing. After 30sec of focused breathing, Sa02 increased to 90-91%. Gait belt donned for safety. Sit to stand, FWW SBA . Pt teaches back steps of transfer, indicating good understanding of technique. Pt ambulation into hallway down to stairs for stair assessment and back to room, FWW SBA-CGA, approximately 425 '. Pulse ox used to monitor SaO2 during ambulation. Consistently 86-89% with exertion, particularly when conversing during mobility. Education for pursed lip breathing and focusing on breathing during mobility. Increased SaO2 to 90-92%. Ascend/descend 3 stairs with R rail, SBA, with some difficulty controlling descent on final step. Pt desire to return to chair and finish eating breakfast. Pt placed FWW to side prior to sitting. Verbal cues provided to keep FWW in front and step pivot. Stand to sit, FWW CGA to assist with placement of hands on armrests. Positioned upright in chair with pillows under feet for support not able to touch floor, heart monitor reconnected, pulse oximeter placed on L middle finger, fresh ice pack on back , chair alarm activated for safety. Education for use of ther ex to reduce feeling of stiffness and prevent DVT. Gait and ther ex encouraged every waking hour. Call light and all other needs within reach. Nursing notified of O2 stats during tx. Gait Assessment Gait Gait Assistance Required: Standby Assistance Distance (Feet) 500 Able to Maintain Weight Bearing Status Yes During Gait Assistive Devices Assistive Device Gait Belt,Front Wheeled Walker Orthotic/Prosthetic Devices or Brace: No Gait Deviations General Gait Pattern Decreased Stride Length, Decreased Feet Clearance, Flexed Trunk Factors Limiting Gait Function Factors Limiting Gait Function Decreased Activity Tolerance, Decreased Strength,Limited Range of Motion,Pain,Poor Balance,Respiratory Distress Comments Gait Comments 425' FWW, SBA Stair Climbing Assessment Evaluation Level of Assist On Stairs Standby Assistance Devices Stair Climbing Assistive Devices Right Railing Technique/Endurance Stair Climbing Direction Ascend and Descend Stair Climbing Technique Step to Step Number of Steps Climbed 3 Stair Climbing Set # Repetitions (reps) 1 Comments Stair Climbing Comments pt had some difficulty descending final step with complete control. PT-Balance Assessment Sitting Balance and Reactions Static Sitting Balance Ability Normal Dynamic Sitting Balance Ability Normal Standing Balance and Reactions Static Standing Balance Ability Good Dynamic Standing Balance Ability Good Device Used FWW M5 PT-IP Objective Assessments Start: 03/01/20 08:42 Freq: NEEDED Status: Active Protocol: Document 03/01/20 11:13 HH (Rec: 03/01/20 11:32 [id number]) Orientation Orientation/Cognition Level of Alertness Alert Orientation Name,Age,Birthday,Month,Date, Year,Day of Week,Place, Situation Language Function Ability No Deficits Noted Safety Awareness Understands Safety Issues Memory Description No Deficits Noted Gross Range of Motion Upper Extremity ROM Assessment Within Functional Limits Lower Extremity ROM Assessment Within Functional Limits Strength Upper Extremity Strength Assessment Within Functional Limits Lower Extremity Strength Assessment Bilaterally Impaired Hip 4-/5 Knee 4/5 Ankle 4/5 Coordination Assessment Gross Coordination Gross Coordination WNL Sensation Assessment Sensation Gross Sensation WNL Muscle Tone Muscle Tone WNL Yes M6 PT-IP Treatment Start: 03/01/20 08:42 Freq: NEEDED Status: Active Protocol: Document 03/03/20 09:03 TP (Rec: 03/03/20 11:58 TP [id number]) Physical Therapy Treatment Exercises Exercises Ankle Pumps,Heel Slides,Seated Knee Flexion/Extension Education Education Provided Precautions,Weight Bearing Status,Post-Op Packet,Safety M7 PT-IP Assessment and Plan Start: 03/01/20 08:42 Freq: NEEDED Status: Active Protocol: Document 03/03/20 09:03 TP (Rec: 03/03/20 11:58 TP [id number]) PT Summary Assessment and Plan Potential Rehabilitation Potential Excellent Status of Condition at Evaluation Stable Summary Impairments Pain,ROM,Strength,Balance,Bed Mobility,Transfers,Gait, Activity Tolerance Assessment Summary Pt is doing well and has met mobility goals for discharge. However, his SaO2 consistently drops to 86-88% during exertion, particulalry when conversing. Verbal cues for pursed lip breathing and diaphragmatic breathing improve SaO2 to 90-92%. The pt does not feel when his SaO2 decreases. Pt able to ascend and descend stairs, but had some difficulty with eccentric control of quads on the final step today, grasping for FWW. Verbal cues needed to focus on breathing and the task at hand to perform safely. During ambulation, pt puts siginificant weight through BUE, making the FWW mildly unstable when turning. Education provided for upright posture to reduce weight through BUE and improve air flow. Caregiver training recommended to provide cues for energy conservation, breathing techniques, and posture. Pt ready for discharge from PT upon completion of CGT when medically stable. Goals Bed Mobility Goal Standby Assistance Transfer Goal Standby Assistance,Front Wheeled Walker Gait Goal Standby Assistance,Front Wheel Walker Gait Distance 200 Other Goals 3 REGINALDO with R rail SBA/CGA Days to Meet Goals 3 Frequency of Treatment Frequency Of Treatment Twice a Day Treatment Plan Physical Therapy Treatment Plan Bed Mobility Training,Transfer Training,Gait Training, Therapeutic Exercise,Balance Retraining,Post Op Education, Discharge Planning,Hot or Cold Pack,Neuromuscular Re-ed Other Recommendations and Next Treatment breathing techniques during Focus mobility/exertion, caregiver training Recommendations To Nursing Amount of Assist Needed Standby Assistance Discharge Recommendations PT Discharge Recommendations Home with Assistance Other Discharge Recommendations caregiver training recommended to assist with cues for energy conservation, monitoring oxygen saturation, and assist as needed during gait and stair management for safety Equipment Needed for Home Before shower chair & possible need Discharge for raised toilet seat pt has FWW at home Transportation Needs at Discharge Private Vehicle
--- NOTE | 2020-03-03 09:54 | OT.IPNOTE ---
Pt has no further OT needs, PT to continue to see pt for mobility needs. Pt still here due to having medical issues of decreased O2. Therefore discharge pt from OT services.
[2020-03-03] MEDS: levoFLOXacin 750 MG/150 ML PIGGYBACK 100 MG IV (10:46)
[2020-03-03] MEDS: BISACODYL 10 MG SUPP PR (13:41)
--- NOTE | 2020-03-03 14:26 | CM.DPC ---
DCP:continued: case discussed with consulting hospitalist Dr. Tang. He reported pt is still having difficulty keeping o2 sats up and Rn Blake confirmed same. He stated that he did not plan to d/c pt today. Dr. Garcia has indicated pt is stable for home d/c from an orthopedic standpoint but pt will now need to be cleared for d/c by hospitalist service. Dr. Tang planned to come back later and speak again with pt. DCP team will follow prn as POC unfolds.
--- NOTE | 2020-03-03 14:45 | PM.PN.1 ---
Subjective Subjective Date Patient Seen: 03/03/20 Interval history: Patient is 69-year-old male previous smoker with history of hypertension, hyperlipidemia, hiatal hernia surgery, sleep apnea, noncompliant with home CPAP, depression, lumbar stenosis who is status post multilevel lumbar laminectomy and fusion on February 28 who developed postop hypoxic respiratory failure. Patient has been asymptomatic in spite of significant hypoxia without shortness of breath, cough or fever. Chest CTA showed right lower lobe pneumonia, no pulmonary embolism, no lung mass. His O2 sats have been in the upper 80s today on room air. He was on as much as 7-8 L O2 with his CPAP overnight. Exam Vital Signs (past 8 hours): - 03/03/20 08:00 03/03/20 09:00 03/03/20 10:09 Temperature 97.1 F L Pulse Rate 84 87 Respiratory Rate 21 18 Blood Pressure 134/73 Pulse Oximetry 91 91 92 03/03/20 13:53 Temperature 97.8 F Pulse Rate 86 Respiratory Rate 18 Blood Pressure 117/64 Pulse Oximetry 92 Fraction of Inspired Oxygen 2 Oxygen Delivery Method Nasal Cannula Oxygen Flow Rate 2 Narrative Exam Narrative: General: Alert male, NAD Lungs: Breathing nonlabored, clear to auscultation Heart: Regular rhythm Extremities: Trace pretibial edema Objective Labs Result Diagrams: 03/02/20 20:05 03/02/20 20:05 Labs: Laboratory Results - last 24 hr 03/02/20 03/02/20 03/02/20 19:55 20:05 20:05 WBC 14.2 H RBC 3.46 L Hgb 10.5 L Hct 31.8 L MCV 91.9 MCH 30.3 MCHC 33.0 RDW 13.1 Plt Count 181 Neut % (Auto) 72.8 Lymph % (Auto) 12.2 L [place] % (Auto) 12.8 Eos % (Auto) 2.0 Baso % (Auto) 0.2 Neut # (Auto) 18643 H Lymph # (Auto) 1700 [place] # (Auto) 1800 H Eos # (Auto) 300 Baso # (Auto) 0 ABG pH 7.43 ABG pCO2 37.5 ABG pO2 58 L ABG HCO3 25 ABG Total CO2 26 ABG O2 Saturation 91 L ABG Base Excess 1.0 FiO2 36 Sodium Potassium Chloride Carbon Dioxide BUN Creatinine Estimated GFR BUN/Creatinine Ratio Glucose Calcium Procalcitonin 0.20 08/13/20 20:05 WBC RBC Hgb Hct MCV MCH MCHC RDW Plt Count Neut % (Auto) Lymph % (Auto) [place] % (Auto) Eos % (Auto) Baso % (Auto) Neut # (Auto) Lymph # (Auto) [place] # (Auto) Eos # (Auto) Baso # (Auto) ABG pH ABG pCO2 ABG pO2 ABG HCO3 ABG Total CO2 ABG O2 Saturation ABG Base Excess FiO2 Sodium 132 L Potassium 4.3 Chloride 98 Carbon Dioxide 30 BUN 27 H Creatinine 1.23 Estimated GFR 58.2 L BUN/Creatinine Ratio 22.0 Glucose 117 H Calcium 9.3 Procalcitonin Assessment & Plan Assessment & Plan narrative: This is a 69-year-old male former smoker with history of hypertension, hyperlipidemia, untreated sleep apnea, status post lumbar laminectomy fusion, with postop hypoxia. 1. Acute hypoxic respiratory failure, postop -likely due to right lower lobe pneumonia seen on CTA -O2 sat seem to be improving -treat pneumonia -continue incentive spirometry 2 Bacterial pneumonia -undetermined whether truly postop or present prior to admission -continue Levaquin 750 mg IV/p.o. Daily to complete 7 day course 3. Sleep apnea, chronic -patient noncompliant with home CPAP -continue CPAP during sleep hours 4. Hypertension, chronic -adequate control, continue lisinopril and amlodipine 5. Hyperlipidemia, chronic -continue atorvastatin Patient with improving respiratory failure and can discharge home when resting O2 sats are 90% or better on room air. Anticipate discharge tomorrow, Friday.
--- NOTE | 2020-03-03 14:46 | PT.IPTN ---
Current Diagnoses Other forms of scoliosis, lumbar region (02/29/20) Spondylolisthesis, lumbar region (02/29/20) Spinal stenosis, lumbar region with neurogenic claudication (02/29/20) Surgery Performed Operation Date: 02/29/20 10:15 Actual Procedures p L2-S1 laminectomies,L4-S1 instrumented fusion w/bone graft - Austin Garcia MD Physical Therapy Treatment Note M2 PT-IP Current Condition Start: 03/01/20 08:42 Freq: NEEDED Status: Active Protocol: Document 03/03/20 09:03 TP (Rec: 03/03/20 11:58 TP [id number]) Physical Therapy Current Condition Current Condition Evaluation Date 03/01/20 Treatment Diagnosis L2-S1 laminectomies,L4-S1 instrumented fusion Onset Date 02/29/20 Precautions Lumbar Precautions Log Roll,No Twisting,Limit Bending,Lifting Restriction of 10 lbs,Gait Belt above Incisional Area Weight Bearing Status Weight Bearing Status Weight Bear as Tolerated M3 PT-IP Subjective Start: 03/01/20 08:42 Freq: NEEDED Status: Active Protocol: Document 03/03/20 14:30 KS (Rec: 03/03/20 15:35 KS [email or web address]) Subjective Physical Therapy Visit Type Type Treatment Note Visit Start Time 14:30 Visit Stop Time 14:46 Total Visit Minutes 16 Number of MANAGER OF QUALITY Visits 2 Physical Therapy Visit Comments Patient Comments Pt feeling stiff. Disappointed he can't go home due to O2. present during treatment. Patient Goals to return home with . Therapy Pain Assessment Pain When Pain Assessed At Rest Pain Present Pain Present Denied Pain M4 PT-IP Mobility and Gait Start: 03/01/20 08:42 Freq: NEEDED Status: Active Protocol: Document 03/03/20 14:30 KS (Rec: 03/03/20 15:35 KS [email or web address]) PT-Bed Mobility Assessment Scooting Scooting to Edge of Bed Independent PT-Transfer Assessment Sit to and From Stand Sit to and from Stand Standby Assistance Equipment Transfer Assistive Device Gait Belt,Front Wheeled Walker Orthotic/Prosthetic Devices or Brace: No Transfers Transfer Destination Chair,Toilet Transfer Technique pt ambulated w/ FWW Transfer Ability Level of Assist Standby Assistance,Contact Guard Assistance,1 Person Assistance,Use of Upper Extremities Comments Mobility Comments Pt sitting in chair upon arrival from therapy and in room. Pt reported stiffness from sitting too much and expressed frustration w/ O2 issues. Pts O2 93 on RA when sitting. Pt I for scooting to EOC and SBA for sit<>stand w/ FWW. Pts o2 92% RA upon standing. Enocuraged pt not to talk and to focus on breathing during ambulation. Pt ambulated ~50 ft w/ FWW and SBA, O2 89%, SOB denied. Encouraged pt to take standing rest break w/ cues for breathing, O2 remained at 89. Pt ambulated additional 20 ft and O2 dropped to 87, pt denied SOB. He then ambulated additional 20 ft back towards room and O2 dropped to 85%, pt admitted slight SOB. Pt returned to chair CGA, O2 raised to 92% on RA. Pt then requested to use bathroom, SBA for ambulation w/ FWW and stand<>sit on toilet, O2 90%. Informed pt to focus on breathing/not hold breath while using bathroom. Pt left on toilet w/ call light and in room. Notified RN that pt was left on toilet. Gait Assessment Gait Gait Assistance Required: Standby Assistance Distance (Feet) 110 Able to Maintain Weight Bearing Status Yes During Gait Assistive Devices Assistive Device Gait Belt,Front Wheeled Walker Orthotic/Prosthetic Devices or Brace: No Gait Deviations General Gait Pattern Decreased Stride Length, Decreased Feet Clearance, Flexed Trunk Factors Limiting Gait Function Factors Limiting Gait Function Decreased Activity Tolerance, Decreased Strength,Limited Range of Motion,Pain,Poor Balance,Respiratory Distress Comments Gait Comments Pt ambulated ~110 total feet w / 2 x standing rest breaks and cues for proper breathing techniques to maximize O2. Pts O2 ranged from 85%-92% on RA when ambulating and standing, and 90% to 93% on RA when sitting. Pt demonstrated good use of FWW and good attention to precautions and posture. PT-Balance Assessment Sitting Balance and Reactions Static Sitting Balance Ability Normal Dynamic Sitting Balance Ability Normal Standing Balance and Reactions Static Standing Balance Ability Good Dynamic Standing Balance Ability Good Device Used FWW M5 PT-IP Objective Assessments Start: 03/01/20 08:42 Freq: NEEDED Status: Active Protocol: Document 03/01/20 11:13 (Rec: 03/01/20 11:32 [id number]) Orientation Orientation/Cognition Level of Alertness Alert Orientation Name,Age,Birthday,Month,Date, Year,Day of Week,Place, Situation Language Function Ability No Deficits Noted Safety Awareness Understands Safety Issues Memory Description No Deficits Noted Gross Range of Motion Upper Extremity ROM Assessment Within Functional Limits Lower Extremity ROM Assessment Within Functional Limits Strength Upper Extremity Strength Assessment Within Functional Limits Lower Extremity Strength Assessment Bilaterally Impaired Hip 4-/5 Knee 4/5 Ankle 4/5 Coordination Assessment Gross Coordination Gross Coordination WNL Sensation Assessment Sensation Gross Sensation WNL Muscle Tone Muscle Tone WNL Yes M6 PT-IP Treatment Start: 03/01/20 08:42 Freq: NEEDED Status: Active Protocol: Document 03/03/20 14:30 KS (Rec: 03/03/20 15:35 KS [email or web address]) Physical Therapy Treatment Education Education Provided Precautions,Weight Bearing Status,Post-Op Packet,Safety M7 PT-IP Assessment and Plan Start: 03/01/20 08:42 Freq: NEEDED Status: Active Protocol: Document 03/03/20 14:30 KS (Rec: 03/03/20 15:35 KS [email or web address]) PT Summary Assessment and Plan Potential Rehabilitation Potential Excellent Status of Condition at Evaluation Stable Summary Impairments Pain,ROM,Strength,Balance,Bed Mobility,Transfers,Gait, Activity Tolerance Assessment Summary Pt continues to do well SBA to CGA w/ mobility and ambulation, but is limited by O2 dropping. Pt demonstrated good attention to breathing techniques as well as FWW use and adherence to precautions. Pt admitted to slight SOB when O2 was at 85% after ~100 ft ambulation, but denied SOB after sitting. Pts O2 ranged from 85-92% on RA during ambulation and standing and 90 -93% when sitting. Pt will benefit from continued therapy to reinforce energy conservation and breathing techniques. Goals Bed Mobility Goal Standby Assistance Transfer Goal Standby Assistance,Front Wheeled Walker Gait Goal Standby Assistance,Front Wheel Walker Gait Distance 200 Other Goals 3 REGINALDO with R rail SBA/CGA Days to Meet Goals 3 Frequency of Treatment Frequency Of Treatment Twice a Day Treatment Plan Physical Therapy Treatment Plan Bed Mobility Training,Transfer Training,Gait Training, Therapeutic Exercise,Balance Retraining,Post Op Education, Discharge Planning,Hot or Cold Pack,Neuromuscular Re-ed Other Recommendations and Next Treatment breathing techniques during Focus mobility/exertion, caregiver training Recommendations To Nursing Amount of Assist Needed Standby Assistance Discharge Recommendations PT Discharge Recommendations Home with Assistance Equipment Needed for Home Before shower chair & possible need Discharge for raised toilet seat pt has FWW at home Transportation Needs at Discharge Private Vehicle
--- NOTE | 2020-03-03 15:41 | PC.NURSE ---
1330- Dsg changed per order. Incisions are well approx with karey. There is moderate sero sang drainage on dsg but none actively draining at incision. Applied exudry and secured with tape. Pt tolerated well. Reports pain is well controlled. C/o constipation. No results from MOM/prune juice given earlier. Supp given.
[2020-03-03] MEDS: SENNOSIDES 8.6 MG TABLET 17.2 MG PO (21:44)
[2020-03-03] MEDS: ATORVASTATIN 20 MG TABLET PO (21:44)
[2020-03-03] MEDS: PRAMIPEXOLE 0.25 MG TABLET 0.5 MG PO (21:45)
[2020-03-04 04:20] VITALS: BP 152/74; PULSE 89; RESP 18; TEMP 37; O2SAT 93
[2020-03-04 05:00] VITALS: O2SAT 93
[2020-03-04 05:21] LABS: Add Manual Diff / Slide Review NO; Basophils Absolute Auto 0 /uL (0-100); Basophils Percent Auto 0.4 % (0-2); Eosinophils Absolute Auto 300 /uL (0-450); Eosinophils Percent Auto 1.9 % (2-4); Hematocrit 33.1 % (41-53); Lymphocytes Absolute Auto 1600 /uL (1100-4500); Lymphocytes Percent Auto 11.7 % (25-40); Mean Corpuscular HGB Conc 33.3 % (30-36); Mean Corpuscular Hemoglobin 30.5 PG (26-34); Mean Corpuscular Volume 91.7 fL (80-100); Monocytes Absolute Auto 1300 /uL (0-900); Monocytes Percent Auto 9.5 % (3-14); Neutrophils Absolute Auto 10300 /uL (1500-7000); Neutrophils Percent Auto 76.5 % (50-75); Platelet Count 221 X10^3/uL (150-400); Red Blood Cell Count 3.61 X10^6/uL (4.5-5.9); Red Cell Distribution Width 13.3 % (11.6-14.8); White Blood Cell Count 13.4 X10^3/uL (4.5-11.0)
[2020-03-04 05:44] LABS: Procalcitonin 0.19 ng/mL (<0.5)
--- NOTE | 2020-03-04 06:21 | PC.NURSE ---
Activities Aide Note-Patient ambulated into BR with SBA and walker few times, no stool, passing much flatus. Percocet prn effective for pain to legs and back, dressing D/I. VSS. Refused C-pap, Spo2 89-96% on 2.5L NC overnight, also refused SCDs.
[2020-03-04 08:00] VITALS: O2SAT 94
[2020-03-04 08:22] VITALS: RESP 15
[2020-03-04 08:23] VITALS: PULSE 89; RESP 18; O2SAT 94
[2020-03-04] MEDS: CELECOXIB 200 MG CAPSULE PO (08:59)
[2020-03-04] MEDS: levoFLOXacin 750 MG/150 ML PIGGYBACK 100 MG IV (08:59)
[2020-03-04] MEDS: ASCORBIC ACID 500 MG TABLET 1000 MG PO (08:59)
[2020-03-04] MEDS: AMLODIPINE 5 MG TABLET 10 MG PO (08:59)
[2020-03-04 09:00] VITALS: BP 130/74; PULSE 83; RESP 18; TEMP 36.4; O2SAT 94
[2020-03-04] MEDS: DULOXETINE 30 MG CAPSULE 90 MG PO (09:00)
[2020-03-04] MEDS: DOCUSATE 100 MG CAPSULE PO (09:00)
[2020-03-04] MEDS: CHOLECALCIFEROL (VITAMIN D3) 5,000 UNIT TABLET 5000 UNIT PO (09:00)
[2020-03-04] MEDS: CYANOCOBALAMIN (VITAMIN B-12) 500 MCG TABLET 2000 MCG PO (09:00)
[2020-03-04] MEDS: FLUTICASONE 120 SPRAY/16 GM SPRAY.SUSP NASAL (09:01)
[2020-03-04] MEDS: GABAPENTIN 600 MG TABLET PO (09:01)
[2020-03-04] MEDS: PANTOPRAZOLE 40 MG TABLET PO (09:02)
[2020-03-04] MEDS: OXYCODONE/ACETAMINOPHEN 5/325 TABLET 2 TAB PO (09:02)
[2020-03-04] MEDS: SODIUM CHLORIDE 0.9% FLUSH 10 ML IV (09:02)
[2020-03-04] MEDS: LORATADINE 10 MG TABLET PO (09:02)
[2020-03-04] MEDS: lisinopriL 20 MG TABLET PO (09:02)
[2020-03-04] MEDS: MULTIVITAMIN 1 TABLET 1 TAB PO (09:02)
--- NOTE | 2020-03-04 09:41 | PM.DS.1 ---
History of Present Illness History of Present Illness Date Patient Seen: 03/04/20 Time Patient Seen: 09:41 Chief complaint: INPT Narrative: Please see HPI previously recorded in chart. Discharge Providers Provider Date of admission: 02/29/20 09:09 Discharge Date: 03/04/20 Primary care physician: Charlie Mobley DO Consults: 02/29/20 09:58 Consult to Respiratory Therapy Evaluate & Treat Comment: Physician Instructions: Evaluate and treat 02/29/20 18:29 Consult to Occupational Therapy Evaluate & Treat Comment: Physician Instructions: Evaluate and treat Consult to Physical Therapy Evaluate & Treat Comment: Physician Instructions: Evaluate and Treat Consult to Respiratory Therapy Evaluate & Treat Comment: CPAP Physician Instructions: Evaluate and treat 02/29/20 22:23 Consult to Respiratory Therapy Evaluate & Treat Comment: Physician Instructions: Evaluate and treat 03/02/20 20:39 Consult to Respiratory Therapy Evaluate & Treat Comment: Patient uses CPAP, please set him up Physician Instructions: Evaluate and treat Discharge provider: Elvia Jarrell PA-C Summary Hospital Course Discharge Diagnosis: s/p TLIF Hospital Course: [age] year old male with intractable pain from stenosis. They had failed conservative management and requested operative intervention. Risks and benefits of surgery were discussed and appropriate consents were obtained. Patient underwent L2-S1 laminectomies with L4-S1 TLIF with Dr. Garcia. He was transferred to acute care floor where he has been progressing well postoperatively. Recovery was complicated by a right lower lobe pneumonia confirmed by chest CT which medicine was consulted for. He has been receiving Levaquin IV with improvement in symptoms and is satting well on room air. He will be discharged with supply of PO Levaquin. Medically stable for discharge to home with as caregiver. Status at Discharge Cognitive/behavioral status at discharge: oriented Functional status at discharge: uses cane/walker Overall status at discharge: patient is progressing back to baseline Exam Vital Signs (past 8 hours): - 03/04/20 04:20 03/04/20 05:00 03/04/20 08:23 Temperature 98.6 F Pulse Rate 89 89 Respiratory Rate 18 18 Blood Pressure 152/74 H Pulse Oximetry 93 93 94 03/04/20 09:00 Temperature 97.5 F L Pulse Rate 83 Respiratory Rate 18 Blood Pressure 130/74 Pulse Oximetry 94 Fraction of Inspired Oxygen 2 Oxygen Delivery Method Room Air Oxygen Flow Rate 2.5 Narrative Exam Narrative: 69 year old male resting comfortably in chair. Alert and oriented in no acute distress. Dressing over lumbar spine is clean and dry, peeling at edges. Will change prior to d/c. 5/5 BLE. Calves soft, compressible. Oxygen saturation 95% on room air at time of exam. Objective Labs Result Diagrams: 03/04/20 04:20 03/02/20 20:05 Labs: Laboratory Results - last 24 hr 03/04/20 03/04/20 04:20 04:20 WBC 13.4 H RBC 3.61 L Hgb 11.0 L Hct 33.1 L MCV 91.7 MCH 30.5 MCHC 33.3 RDW 13.3 Plt Count 221 Neut % (Auto) 76.5 H Lymph % (Auto) 11.7 L [place] % (Auto) 9.5 Eos % (Auto) 1.9 L Baso % (Auto) 0.4 Neut # (Auto) 57991 H Lymph # (Auto) 1600 [place] # (Auto) 1300 H Eos # (Auto) 300 Baso # (Auto) 0 Procalcitonin 0.19 Discharge Assessment & Plan Assessment and Plan Assessment: Lumbar stenosis with radiculopathy, now status post laminectomy and fusion. Postoperative pneumonia now on Levaquin Plan of Treatment: Discharge home Discharge Plan Discharge Plan Patient Disposition: Home Discharge comment: Follow-up [address] salmon Discharge orders & Medications Prescriptions: New celecoxib [Celebrex] 200 mg Capsule 200 mg PO BID PRN (Reason: pain) Qty: 60 RF: 0 docusate sodium [DOK] 100 mg Capsule 100 mg PO BID PRN (Reason: constipation) Qty: 30 RF: 0 hydroxyzine pamoate 25 mg Capsule 25 mg PO Q4HR PRN (Reason: spasms) Qty: 20 RF: 0 oxycodone-acetaminophen 5-325 mg Tablet 1 tab PO Q4HR PRN (Reason: Pain, Moderate (4-6)) Qty: 25 RF: 0 levofloxacin [Levaquin] 750 mg tablet 750 mg PO DAILY Qty: 7 RF: 0 Continued ascorbic acid (vitamin C) [Vitamin C] 1,000 mg Tablet 1 g PO BID RF: 0 atorvastatin 20 mg Tablet 20 mg PO DAILY RF: 0 lisinopril 20 mg Tablet 20 mg PO DAILY RF: 0 pramipexole 0.5 mg Tablet 0.5 mg PO BEDTIME RF: 0 amlodipine 10 mg Tablet 10 mg PO DAILY RF: 0 pantoprazole 40 mg Tablet,Delayed Release (Dr/Ec) 40 mg PO DAILY RF: 0 cyanocobalamin (vitamin B-12) [Vitamin B-12] 2,000 mcg Tablet Extended Release 2,000 mcg PO DAILY RF: 0 multivitamin Capsule 1 cap PO DAILY RF: 0 fluticasone propionate 50 mcg/actuation [place],Suspension 2 spray INTRANASAL DAILY RF: 0 duloxetine 60 mg Capsule,Delayed Release(Dr/Ec) 90 mg PO DAILY RF: 0 cholecalciferol (vitamin D3) [Vitamin D3] 125 mcg (5,000 unit) Tablet 125 mcg PO DAILY RF: 0 loratadine 10 mg Capsule 10 mg PO DAILY RF: 0 gabapentin 600 mg Tablet 600 mg PO TID RF: 0 Discontinued ibuprofen 600 mg Tablet 600 mg PO QD-BID PRN (Reason: Pain) RF: 0 Follow up/Referrals: Charlie Mobley DO [Primary Care Provider] - Austin Garcia MD [Physician] - (as scheduled) Discharge Health Status Multidrug resistant organism: No MDRO Diet/Activity/Treatments Diet: Diet as Tolerated Activity: Limited bending, twisting, lifting 10 lb maximum Skin/Wound/Dressing Care Report to your healthcare provider any signs of infection, such as:: chills, fever Dressing: May change dressing and shower on Friday. Replace with clean dressing when done. Visit Report/Discharge Packet Instructions: DI for Prescription Opioid Use, DI for Transforaminal Lumbar Interbody Fusion Stand Alone Forms: Surgery Discharge Discharge Data Primary Care Provider: Charlie Mobley
--- NOTE | 2020-03-04 10:59 | PT.IPTN ---
Current Diagnoses Other forms of scoliosis, lumbar region (02/29/20) Spondylolisthesis, lumbar region (02/29/20) Spinal stenosis, lumbar region with neurogenic claudication (02/29/20) Surgery Performed Operation Date: 02/29/20 10:15 Actual Procedures p L2-S1 laminectomies,L4-S1 instrumented fusion w/bone graft - Austin Garcia MD Physical Therapy Treatment Note M2 PT-IP Current Condition Start: 03/01/20 08:42 Freq: NEEDED Status: Active Protocol: Document 03/03/20 09:03 TP (Rec: 03/03/20 11:58 TP [id number]) Physical Therapy Current Condition Current Condition Evaluation Date 03/01/20 Treatment Diagnosis L2-S1 laminectomies,L4-S1 instrumented fusion Onset Date 02/29/20 Precautions Lumbar Precautions Log Roll,No Twisting,Limit Bending,Lifting Restriction of 10 lbs,Gait Belt above Incisional Area Weight Bearing Status Weight Bearing Status Weight Bear as Tolerated M3 PT-IP Subjective Start: 03/01/20 08:42 Freq: NEEDED Status: Active Protocol: Document 03/04/20 10:47 KS (Rec: 03/04/20 11:16 KS [id number]) Subjective Physical Therapy Visit Type Type Treatment Note Visit Start Time 10:47 Visit Stop Time 10:59 Total Visit Minutes 12 Number of MAT MAN Visits 3 Physical Therapy Visit Comments Patient Comments Pt agreeable to work w/ therapy. Therapy Pain Assessment Pain When Pain Assessed During Mobility Pain Present Pain Present Pain Reported Location Bilateral Leg Scale Used no number given Description Tender,Tightness Pain Behaviors Guarding Pain Management Techniques Re-positioning,Timing of Activity with Medications M4 PT-IP Mobility and Gait Start: 03/01/20 08:42 Freq: NEEDED Status: Active Protocol: Document 03/04/20 10:47 KS (Rec: 03/04/20 11:16 KS [id number]) PT-Bed Mobility Assessment Scooting Scooting to Edge of Bed Independent PT-Transfer Assessment Sit to and From Stand Sit to and from Stand Independent Equipment Transfer Assistive Device Gait Belt,Front Wheeled Walker Orthotic/Prosthetic Devices or Brace: No Transfers Transfer Destination Chair,Toilet Transfer Technique pt ambulated w/ FWW Transfer Ability Level of Assist Standby Assistance,1 Person Assistance,Use of Upper Extremities Comments Mobility Comments Pt in chair upon arrival from therapy w/ present in room. Pt I for scooting to edge of chair and sit<>stand w / FWW. Pt then ambulated ~200 ft w/ FWW and SBA. Pts O2 ranges from 87%-98% on RA throughout treatment this AM. Pts O2 recovered from 87% to 94% quickly when practiced proper breathing techniques. Upon return to room, pt ambulated to toilet, I for stand<>sit on toilet. Pt demonstrated good safety awareness and FWW use, and needed only 1x cues for proper breathing technique. Pt left in room w/ and all needs in reach. RN notified of O2 fluctuations. Gait Assessment Gait Gait Assistance Required: Standby Assistance Distance (Feet) 200 Able to Maintain Weight Bearing Status Yes During Gait Assistive Devices Assistive Device Gait Belt,Front Wheeled Walker Orthotic/Prosthetic Devices or Brace: No Gait Deviations General Gait Pattern Decreased Stride Length, Decreased Feet Clearance, Flexed Trunk Factors Limiting Gait Function Factors Limiting Gait Function Decreased Activity Tolerance, Decreased Strength,Limited Range of Motion,Pain,Poor Balance,Respiratory Distress Comments Gait Comments Please refer to mobility section for details. Stair Climbing Assessment Comments Stair Climbing Comments Pt stated he feels comfortable to perform stairs at home. PT-Balance Assessment Sitting Balance and Reactions Static Sitting Balance Ability Normal Dynamic Sitting Balance Ability Normal Standing Balance and Reactions Static Standing Balance Ability Good Dynamic Standing Balance Ability Good Device Used FWW M5 PT-IP Objective Assessments Start: 03/01/20 08:42 Freq: NEEDED Status: Active Protocol: Document 03/01/20 11:13 HH (Rec: 03/01/20 11:32 [id number]) Orientation Orientation/Cognition Level of Alertness Alert Orientation Name,Age,Birthday,Month,Date, Year,Day of Week,Place, Situation Language Function Ability No Deficits Noted Safety Awareness Understands Safety Issues Memory Description No Deficits Noted Gross Range of Motion Upper Extremity ROM Assessment Within Functional Limits Lower Extremity ROM Assessment Within Functional Limits Strength Upper Extremity Strength Assessment Within Functional Limits Lower Extremity Strength Assessment Bilaterally Impaired Hip 4-/5 Knee 4/5 Ankle 4/5 Coordination Assessment Gross Coordination Gross Coordination WNL Sensation Assessment Sensation Gross Sensation WNL Muscle Tone Muscle Tone WNL Yes M6 PT-IP Treatment Start: 03/01/20 08:42 Freq: NEEDED Status: Active Protocol: Document 03/04/20 10:47 KS (Rec: 03/04/20 11:16 KS [id number]) Physical Therapy Treatment Education Education Provided Precautions,Weight Bearing Status,Post-Op Packet,Safety. Informed pt and they can purchase pulse ox to monitor o2 at home. M7 PT-IP Assessment and Plan Start: 03/01/20 08:42 Freq: NEEDED Status: Active Protocol: Document 03/04/20 10:47 KS (Rec: 03/04/20 11:16 KS [id number]) PT Summary Assessment and Plan Potential Rehabilitation Potential Excellent Status of Condition at Evaluation Stable Summary Impairments Pain,ROM,Strength,Balance,Bed Mobility,Transfers,Gait, Activity Tolerance Assessment Summary Pt I for mobility and transfers, SBA for ambulation w/ min cues for breathing techniques and energy conservation. Pts O2 fluctuated from 87% to 98% on RA throughout treatment, pt denied SOB or lightheadedness. Pt ambulated safely w/ FWW and denied stairs today, stating he completed them 3x w /o trouble. He will benefit from outpatient therapy to improve energy conservation techniques and to improve strength and spinal mobility when appropriate. Goals Bed Mobility Goal Standby Assistance Transfer Goal Standby Assistance,Front Wheeled Walker Gait Goal Standby Assistance,Front Wheel Walker Gait Distance 200 Other Goals 3 REGIANLDO with R rail SBA/CGA Days to Meet Goals 3 Frequency of Treatment Frequency Of Treatment Twice a Day Treatment Plan Physical Therapy Treatment Plan Bed Mobility Training,Transfer Training,Gait Training, Therapeutic Exercise,Balance Retraining,Post Op Education, Discharge Planning,Hot or Cold Pack,Neuromuscular Re-ed Other Recommendations and Next Treatment breathing techniques during Focus mobility/exertion, caregiver training Recommendations To Nursing Amount of Assist Needed Standby Assistance Discharge Recommendations PT Discharge Recommendations Home with Assistance Equipment Needed for Home Before shower chair & possible need Discharge for raised toilet seat pt has FWW at home Transportation Needs at Discharge Private Vehicle
== END 2020-03-04 11:30 | disposition home or self-care (01) | DRG 453 ==
LOC: AC 14:36 → ICU 03-01 13:52
PROVIDERS: Internal Medicine; Admitting Provider Orthopaedic Surgery; PCP Family Medicine; Referring Provider Family Medicine; Visit Provider Orthopaedic Surgery
PROC: 0SG00AJ Fusion of Lumbar Vertebral Joint with Interbody Fusion Device, Posterior Approach, Anterior Column, Open Approach (ICD-10-PCS; principal; 2020-02-29 10:15)
DX: M48.062 Spinal stenosis, lumbar region with neurogenic claudication (principal); J15.9 Unspecified bacterial pneumonia; J96.01 Acute respiratory failure with hypoxia; M41.86 Other forms of scoliosis, lumbar region; G47.33 Obstructive sleep apnea (adult) (pediatric); I10 Essential (primary) hypertension; E78.5 Hyperlipidemia, unspecified; K21.9 Gastro-esophageal reflux disease without esophagitis; F32.9 Major depressive disorder, single episode, unspecified; M43.16 Spondylolisthesis, lumbar region; Z11.59 Encounter for screening for other viral diseases; Z87.891 Personal history of nicotine dependence
CPT/HCPCS: 36415; 36600; 71045; 71046; 71275; 72100; 76000; 80048; 82805; 84145; 85014; 85018; 85025; 87635; 87797; 94660; 94762; 97116; 97161; 97165; 97530; 97535; C1776; J0330; J0595; J0690; J1100; J1170; J1956; J2250; J2274; J2405; J2704; J3010; Q9967

== ENCOUNTER → 2024-04-19 13:14 | Outpatient (CLI) | payer OTHER, SELFPAY ==
[2020-02-29 18:39] VITALS: BMI 33.7
[2020-03-01 05:50] VITALS: RESP 27
[2020-03-03 05:41] VITALS: PULSE 80; O2SAT 93
== END ==
LOC: RESP 13:15
PROVIDERS: PCP Family Medicine; Referring Provider Internal Medicine Critical Care Medicine; Visit Provider Internal Medicine Critical Care Medicine
DX: R06.09 Other forms of dyspnea (principal); Z87.891 Personal history of nicotine dependence; R94.2 Abnormal results of pulmonary function studies; R06.02 Shortness of breath
CPT/HCPCS: 94060; 94726; 94729

== ENCOUNTER → 2024-05-20 09:23 | Outpatient (CLI) | payer OTHER, SELFPAY ==
[2020-02-29 18:39] VITALS: BMI 33.7
[2020-03-01 05:50] VITALS: RESP 27
[2020-03-03 05:41] VITALS: PULSE 80; O2SAT 93
--- NOTE | 2024-05-20 09:24 | DI.ECHO.S_ITS ---
[facility]+ [facility] : : [id number] : : [place] : : [id number] : : Phone: [phone] Echocardiogram Report + + :Name: JUDY VILLASENOR JR Study Date: 05/20/2024 Height: 69 in : :[facility] ReadingLocation: Weight: 230 lb : : Gender: Male BSA: 2.2 m2 : :: 1950 Age: 73 yrs BP: 164/92 mmHg: :Reason For Study: WELLER : :Ordering Physician: NATALYA, : :MEGHANA Performed By: Henok Staples : :Referring: MEGHANA HOANG : + + Interpretation Summary Normal sinus rhythm. Normal LV size and wall thickness. Normal wall motion and LV systolic function. Ejection fraction is 60-65%. Moderate left atrial enlargement. Otherwise normal chamber sizes. Aortic sclerosis without stenosis, noncoronary leaflet is particularly involved. Otherwise, there are no significant valvular abnormalities. Compared to prior echocardiogram obtained August 25, 2018, aortic sclerosis progressed a little bit. Procedure: A two-dimensional transthoracic echocardiogram with color flow and Doppler was performed. The study quality was technically good. Comparison is made with the echocardiogram of 08/25/2018. The patient was in normal sinus rhythm during the exam. Left Ventricle: The left ventricle is normal in size. There is normal left ventricular wall thickness. There is no ventricular septal defect visualized. The ejection fraction is estimated to be 60-65%. There are no focal wall motion abnormalities. Right Ventricle: The right ventricle is normal in size and function. Atria: The left atrium is moderately dilated. Right atrial size is normal. There is no Doppler evidence for an atrial septal defect. Mitral Valve: The mitral valve is normal in structure and function. There is no mitral regurgitation noted. Aortic Valve: The aortic valve is normal in structure and function. No aortic regurgitation is present. Tricuspid Valve: The tricuspid valve is normal in structure and function. There is a trace or physiologic amount of tricuspid regurgitation. Pulmonic Valve: The pulmonic valve is normal in structure and function. There is no pulmonic valvular regurgitation. Great Vessels: The aortic root is normal size. The dimensions of the ascending aorta are normal. The pulmonary artery is normal size. The IVC is of normal diameter and collapses greater than 50% with a sniff. This suggests a low right atrial pressure of 3 mm Hg. Pericardium/ Pleura There is no pericardial effusion. There is no pleural effusion. MMode/2D Measurements & Calculations LVIDd: 5.1 cm LVOT diam: 2.4 cm LVIDs: 3.4 cm Ao root diam: 3.6 cm FS: 32.6 % asc Aorta Diam: 3.7 cm EPSS: 0.52 cm Ao Arch Diam (Prox Trans): 3.3 cm IVSd: 0.94 cm LVPWd: 0.77 cm LV luna. diameter/BSA (cm/m^2): 2.3 LV sys. diameter/BSA (cm/m^2): 1.6 LA A2 area: 27.0 cm2 RA long axis: 4.0 cm LA A4 area: 25.4 cm2 RA area: 10.4 cm2 LA length (vol): 5.9 cm RA vol: 23.0 ml LA vol: 98.3 ml RA : 10.5 ml/m2 LA vol index: 44.9 ml/m2 IVC diam: 1.5 cm RVD1 (basal): 3.8 cm RVD2 (mid): 2.9 cm TAPSE: 2.8 cm Doppler Measurements & Calculations Ao V2 max: 184.4 cm/sec LVOT Max Mikhail: 134.5 cm/sec Ao V2 mean: 131.6 cm/sec LV V1 max P.2 mmHg Ao max P.6 mmHg LV V1 VTI: 25.9 cm Ao mean P.5 mmHg RADHA(I,D): 3.0 cm2 Ao V2 VTI: 40.1 cm RADHA(V,D): 3.4 cm2 sev ratio: 0.65 RADHA indexed to BSA (cm^2/m^2): 1.4 MV E max mikhail: 89.9 cm/sec PA V2 max: 89.4 cm/sec MV A max mikhail: 85.5 cm/sec PA V2 mean: 63.9 cm/sec MV E/A: 1.1 PA mean P.8 mmHg Med Peak E' Mikhail: 5.5 cm/sec PA pr(Accel): 22.5 mmHg E/E' med: 16.5 Lat Peak E' Mikhail: 6.6 cm/sec E/E' lat: 13.6 E/e' average: 15.0 MV dec time: 0.20 sec SV(LVOT): 119.9 ml Electronically signed by: Amanda Ohara M.D. on Reading Physician:05/21/2024 04:13 AM
== END ==
PROVIDERS: PCP Family Medicine; Referring Provider Internal Medicine Critical Care Medicine; Visit Provider Internal Medicine Critical Care Medicine
DX: R06.09 Other forms of dyspnea (principal)
CPT/HCPCS: 93306

== ENCOUNTER → 2024-07-29 15:54 | Outpatient (CLI) | payer OTHER, SELFPAY ==
[2020-02-29 18:39] VITALS: BMI 33.7
[2020-03-01 05:50] VITALS: RESP 27
[2020-03-03 05:41] VITALS: PULSE 80; O2SAT 93
--- NOTE | 2024-07-29 15:56 | DI.RAD.S_ITS ---
PROCEDURE: XR CHEST 2V INDICATIONS: sob TECHNIQUE: 2 views of the chest were acquired. COMPARISON: [facility], CR, XR CHEST 2V, 03/02/2020, 9:42. [facility], CR, XR CHEST 1V, 03/01/2020, 6:06. FINDINGS: Surgical changes and devices: None. Lungs and pleura: Lungs are clear. No pleural effusions or pneumothorax. Mediastinum: Mediastinal contours are normal. Heart size is normal. Bones and chest wall: No suspicious bony abnormalities. Soft tissues appear unremarkable. IMPRESSION: No acute cardiopulmonary abnormality is seen. Dictated by: Huber Mistry M.D. on 08/01/2024 at 8:48 Approved by: Huber Mistry M.D. on 08/01/2024 at 8:48
== END ==
PROVIDERS: PCP Family Medicine; Referring Provider Internal Medicine Critical Care Medicine; Visit Provider Internal Medicine Critical Care Medicine
DX: R06.09 Other forms of dyspnea (principal)
CPT/HCPCS: 71046

== ENCOUNTER → 2025-04-04 14:57 | Outpatient (CLI) | payer OTHER, SELFPAY ==
[2020-02-29 18:39] VITALS: BMI 33.7
[2020-03-01 05:50] VITALS: RESP 27
[2020-03-03 05:41] VITALS: PULSE 80; O2SAT 93
== END ==
LOC: RESP 14:58
PROVIDERS: PCP Family Medicine; Referring Provider Internal Medicine Critical Care Medicine; Visit Provider Internal Medicine Critical Care Medicine
DX: R06.09 Other forms of dyspnea (principal); Z87.891 Personal history of nicotine dependence; R94.2 Abnormal results of pulmonary function studies
CPT/HCPCS: 94060; 94726; 94729

== ENCOUNTER → 2025-04-25 09:27 | Outpatient (CLI) | payer OTHER, SELFPAY ==
[2020-02-29 18:39] VITALS: BMI 33.7
[2020-03-01 05:50] VITALS: RESP 27
[2020-03-03 05:41] VITALS: PULSE 80; O2SAT 93
--- NOTE | 2025-04-25 09:29 | DI.CT.S_ITS ---
PROCEDURE: CT ANGIO CHEST PE PROTOCOL INDICATIONS: SOB TECHNIQUE: After the administration of intravenous contrast, 2 mm thick sections acquired from the pulmonary apices to the posterior costophrenic angles. 3-dimensional maximum intensity projection (MIP) coronal and sagittal reformats were then acquired through the thorax. For radiation dose reduction, the following was used: automated exposure control, adjustment of mA and/or kV according to patient size. COMPARISON: [facility], CT, CT ANGIO CHEST PE PROTOCOL, 03/02/2020, 22:20. FINDINGS: Image quality: Diagnostic. Pulmonary arteries: Pulmonary arteries are normal in size, and demonstrate no intraluminal filling defects to suggest central pulmonary embolism. Lower Neck: No enlarged lymph nodes. Thyroid: No thyroid nodules which require sonographic follow up, per consensus guidelines. Axillae: No enlarged lymph nodes. Chest Wall: Unremarkable. Bones: Unremarkable. Lungs and Pleura: No pneumothorax or pleural effusions. No consolidation or suspicious nodules. Heart: Heart size is normal. No pericardial effusion. Thoracic Vessels: No aortic aneurysm. Mediastinum and Manuela: No enlarged lymph nodes. Esophagus: No wall thickening. Moderate hiatal hernia. Upper Abdomen: Visualized upper abdomen solid organs and bowel loops appear normal. IMPRESSION: No pulmonary embolus. No acute cardiopulmonary process. Dictated by: Chaz Nuñez M.D. on 04/25/2025 at 14:40 Approved by: Chaz Nuñez M.D. on 04/25/2025 at 14:45
[2025-04-25 09:49] LABS: Estimated Glomerular Filt Rate > 60 mL/min (>60)
== END ==
PROVIDERS: PCP Family Medicine; Referring Provider Family Medicine; Visit Provider Internal Medicine Critical Care Medicine
DX: R06.09 Other forms of dyspnea (principal); K44.9 Diaphragmatic hernia without obstruction or gangrene
CPT/HCPCS: 36415; 71275; 82565; Q9967